=== PATIENT | male | born 1935 | race Caucasian/White ===

== ENCOUNTER 2020-06-06 12:36 | Inpatient (IN) | payer MEDICARE, SELFPAY ==
[2020-06-06] VITALS (8 sets, daily range): BP systolic 93–173; BP diastolic 51–79; PULSE 58–65; RESP 14–18; TEMP 36.1–36.6; O2SAT 88–100; BMI 23.3
--- NOTE | ~2020-06-06 | CT_ITS ---
EXAMINATION: CT FACIAL BONES WITHOUT CONTRAST CLINICAL INFORMATION: Unwitnessed fall with facial bruising COMPARISON: None TECHNIQUE: Contiguous axial imaging through the facial bones was performed without administration of IV contrast. This CT examination was performed using dose optimization techniques as appropriate, variously including the following: *Automated exposure control *Adjustment of mA and/or kV according to patient size (this includes techniques or standardized protocols for targeted exams where dose is matched to indication/reason for exam; i.e. extremities or head) *Use of iterative reconstruction technique DLP: 1392 mGy-cm (in total with CT of the head and CT of the cervical spine) FINDINGS: There is no acute maxillofacial fracture. The pterygoid plates are intact. The zygomatic arches are intact. The lamina papyracea are intact. The orbital rims are intact. The paranasal sinuses are well-aerated. No air-fluid levels are seen. There is no deviation of the nasal septum. The ostiomeatal complexes are clear. The lamina papyracea are intact. The ethmoid roofs are symmetric. The carotid canals are normally covered by bone. No maxillary periapical disease is seen. The mastoid air cells and visualized middle ear cavities are well-aerated. The orbits are normal. The TMJs are unremarkable. The imaged portions of the brain demonstrate no acute abnormality. CT/CT facial bones wo con IMPRESSION: No acute intracranial process or discrete facial bone fracture.
--- NOTE | ~2020-06-06 | XR_ITS ---
EXAMINATION: XR PELVIS AND HIP, RIGHT XR CHEST CLINICAL INFORMATION: Pain after a fall COMPARISON: None TECHNIQUE: AP radiograph of the chest. AP radiograph of the pelvis with AP and frog-lateral views of the right hip. FINDINGS: Calcified granuloma in the right upper lobe, possibly in the left midlung. No focal consolidation, pulmonary edema, or pleural effusion. No pneumothorax. The cardiomediastinal silhouette is normal. No acute fracture of the pelvis or right hip. Mild bilateral hip osteoarthritis. Osteopenia. Marked degenerative disc disease at L4-L5 and L5-S1. Dense stool overlies the pelvis. Prominent vascular calcifications. XR/XR hip RT w PEL1V IMPRESSION: No acute cardiopulmonary findings. No acute fracture or dislocation of the pelvis/right hip.
--- NOTE | ~2020-06-06 | XR_ITS ---
EXAMINATION: XR PELVIS AND HIP, RIGHT XR CHEST CLINICAL INFORMATION: Pain after a fall COMPARISON: None TECHNIQUE: AP radiograph of the chest. AP radiograph of the pelvis with AP and frog-lateral views of the right hip. FINDINGS: Calcified granuloma in the right upper lobe, possibly in the left midlung. No focal consolidation, pulmonary edema, or pleural effusion. No pneumothorax. The cardiomediastinal silhouette is normal. No acute fracture of the pelvis or right hip. Mild bilateral hip osteoarthritis. Osteopenia. Marked degenerative disc disease at L4-L5 and L5-S1. Dense stool overlies the pelvis. Prominent vascular calcifications. XR/XR chest 1V IMPRESSION: No acute cardiopulmonary findings. No acute fracture or dislocation of the pelvis/right hip.
--- NOTE | ~2020-06-06 | CT_ITS ---
EXAMINATION: CT HEAD WITHOUT CONTRAST CLINICAL INFORMATION: Status post witnessed fall COMPARISON: None TECHNIQUE: Contiguous axial imaging was performed from the skull base to vertex without intravenous administration of contrast. This CT examination was performed using dose optimization techniques as appropriate, variously including the following: *Automated exposure control *Adjustment of mA and/or kV according to patient size (this includes techniques or standardized protocols for targeted exams where dose is matched to indication/reason for exam; i.e. extremities or head) *Use of iterative reconstruction technique DLP: 1392 mGy-cm (in total with CT of the face and CT of the cervical spine) FINDINGS: There is no evidence of acute intracranial hemorrhage or territorial infarction. No abnormal mass effect or midline shift is seen. Tobar to white matter differentiation is well preserved. No extra-axial fluid collections are identified. There is prominence of the ventricles and sulci, compatible with age-related global atrophy. There are scattered areas of decreased attenuation in the subcortical and periventricular white matter, likely due to chronic microvascular ischemic changes. 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 The osseous structures and soft tissues are normal. The mastoid air cells and visualized portions of the paranasal sinuses are well aerated. CT/CT head/brain wo con IMPRESSION: No acute intracranial pathology. Chronic findings of microvascular ischemic changes in the subcortical and periventricular white matter, old lacunar infarct in the left zaida and right basal ganglia, and age related cortical atrophy.
--- NOTE | ~2020-06-06 | CT_ITS ---
EXAMINATION: CT CERVICAL SPINE WITHOUT CONTRAST CLINICAL INFORMATION: Unwitnessed fall COMPARISON: None TECHNIQUE: Helical imaging of the cervical spine was obtained in the axial plane, with generation of sagittal and coronal reformats. This CT examination was performed using dose optimization techniques as appropriate, variously including the following: *Automated exposure control *Adjustment of mA and/or kV according to patient size (this includes techniques or standardized protocols for targeted exams where dose is matched to indication/reason for exam; i.e. extremities or head) *Use of iterative reconstruction technique DLP: 1392 mGy-cm (total with CT of the head and CT of the face) FINDINGS: There is no acute fracture or dislocation. There is diffuse osteopenia. Vertebral body heights are maintained. There is grade 1-2 retrolisthesis of C2 on C3 and grade 1-2 anterolisthesis of C3 on C4. There is diffuse intervertebral disc space narrowing with endplate osteophyte formation. There is subchondral cystic formation at multiple levels. Posterior elements are intact. There is diffuse facet arthropathy, most prominent at C3-C4 and C4-C5. There are mild hypertrophic changes of the C1-C2 articulation. There is moderate to severe bilateral neural foraminal narrowing at C3-C4 and C4-C5. The paravertebral soft tissues are normal. There are centrilobular emphysematous changes in the visualized lung apices. There are are groundglass opacities in the upper lobes that are partially visualized. CT/CT cervical spine wo con IMPRESSION: Multilevel degenerative changes of the cervical spine without acute fracture or dislocation. Grade 1-2 anterolisthesis of C2 on C3 and grade 1 anterolisthesis of C3 on C4. Partially visualized groundglass opacities in the upper lobes, that may reflect infection or inflammation.
--- NOTE | 2020-06-06 13:12 | PC.NURSE ---
calling [facility]. pt should have gone to [facility]. baseline is non ambulatory, tried to get up unassisted. lately more lethargic. last fall was 3/. has been at [facility] since then. arrived with falls and broken ribs, end stage parkinsons. failure to thrive, [place] [facility] was disloged, not [facility]. may need hospice soon according to Dustin. liquid diet. thin.
--- NOTE | 2020-06-06 13:30 | PC.NURSE ---
son on phone. was in independent living at [facility] but then fell and has been at [facility] p/t [facility]. was using walker b/f fall. Fell on a sunday AM after nose bleed, saw ENT, had rhino rocket, has recieved both covid vaccines, 5:30am fell trying to get to BR, fx 6 ribs, on floor for 10-12 hrs. has been at [facility] recieving PT. son states he's been c/o right hip pain. aspirated eggs at [facility].
--- NOTE | 2020-06-06 14:10 | ECG_ITS ---
Test Reason : FALL Blood Pressure : / mmHG Vent. Rate : 055 BPM Atrial Rate : 056 BPM P-R Int : 166 ms QRS Dur : 114 ms QT Int : 444 ms P-R-T Axes : 074 -60 148 degrees QTc Int : 424 ms Sinus bradycardia Left anterior fascicular block Septal infarct (cited on or before 06-JUN-2020) Abnormal ECG No previous ECGs available Referred By: eMre Miles Electronically Signed By: TIM BRAND
--- NOTE | 2020-06-06 14:11 | ED.FALL ---
HPI - Fall General Chief Complaint: Fall <EMILY Ochoa - Last Filed: 06/06/20 17:02> Stated Complaint: UNWIT FALL,F/C PULLED OUT,L EYE BRUISE, +COLLAR <EMILY Ochoa - Last Filed: 06/06/20 17:02> Time Seen by Provider: 06/06/20 14:07 <EMILY Ochoa - Last Filed: 06/06/20 17:02> Source: patient, family, EMS, RN notes reviewed and old records reviewed <EMILY Ochoa - Last Filed: 06/06/20 17:02> Mode of arrival: EMS <EMILY Ochoa - Last Filed: 06/06/20 17:02> History of Present Illness HPI Narrative: 84 y/o male with history of Parkinson's disease with mild dementia, history of recurrent nose bleeds and history of recent admission at [facility] 05/19 - 05/27 for multiple rib fracutres, rhabdomyolysis and altered mental status who presents to the ED from acute rehab via EMS after he was found on the floor this morning. Fall occurred between 9 am and 11:30 am when he was found. He has been in a wheelchair since d/c from [facility], although his baseline was ambulating with a walker and living in an assisted living. He was found with his Cuellar catheter removed. He states he fell and he was dizzy prior to the fall but his cannot recall other details. He is not on anticoagulation and he denies LOC. He reports some right hip pain. He arrives in a C-collar from EMS. <EMILY Ochoa - Last Filed: 06/06/20 17:02> MD complaint: fall <EMILY Ochoa - Last Filed: 06/06/20 17:02> Onset (ago): hour(s) <EMILY Ochoa - Last Filed: 06/06/20 17:02> Fall from: standing <EMILY Ochoa - Last Filed: 06/06/20 17:02> Fall witnessed: no <EMILY Ochoa - Last Filed: 06/06/20 17:02> Place fall occurred[facility] <EMILY Ochoa - Last Filed: 06/06/20 17:02> Loss of consciousness: unsure <EMILY Ochoa - Last Filed: 06/06/20 17:02> Prolonged down time: yes (possibly 2.5 hours ) <EMILY Ochoa - Last Filed: 06/06/20 17:02> Symptoms prior to fall: dizziness <EMILY Ochoa - Last Filed: 06/06/20 17:02> Context: recent illness and history of frequent falls <EMILY Ochoa - Last Filed: 06/06/20 17:02> Location of injury: head and face <EMILY Ochoa - Last Filed: 06/06/20 17:02> Location of injury - extremities: right: lower leg (hip) <EMILY Ochoa - Last Filed: 06/06/20 17:02> Severity: moderate <EMILY Ochoa - Last Filed: 06/06/20 17:02> Quality: aching <EMILY Ochoa - Last Filed: 06/06/20 17:02> Associated symptoms (after fall): weakness and lightheaded <EMILY Ochoa - Last Filed: 06/06/20 17:02> Related Data Home Medications: Home Medications Medication Instructions Recorded Confirmed aspirin [Aspir-81] 81 mg PO DAILY 06/06/20 06/06/20 carbidopa-levodopa [Sinemet] 2 tab PO QID 06/06/20 06/06/20 cholecalciferol (vitamin D3) 2,000 mcg PO DAILY 06/06/20 06/06/20 [Vitamin D3] cyanocobalamin (vitamin B-12) 1,000 mcg PO DAILY 06/06/20 06/06/20 docusate sodium [Colace] 100 mg PO BID 06/06/20 06/06/20 food supplemt, lactose-reduced See Rx Instructions .ROUTE .COMPLEX 06/06/20 06/06/20 [Ensure] gabapentin 100 mg PO TID 06/06/20 06/06/20 ibuprofen 800 mg PO TID PRN 06/06/20 06/06/20 levothyroxine 112 mcg PO DAILY 06/06/20 06/06/20 melatonin 5 mg PO BEDTIME PRN 06/06/20 06/06/20 pravastatin [Pravachol] 20 mg PO DAILY 06/06/20 06/06/20 rivastigmine 9.5 mg TRANSDERMAL DAILY PRN 06/06/20 06/06/20 senna 10 ml PO BEDTIME PRN 06/06/20 06/06/20 <EMILY Ochoa - Last Filed: 06/06/20 17:02> Allergies/Adverse Reactions: Allergies Allergy/AdvReac Type Severity Reaction Status Date / Time No Known Allergies Allergy Verified 06/06/20 13:17 <EMILY Ochoa - Last Filed: 06/06/20 17:02> Review of Systems Review of Systems: Constitutional: No Fever, No Chills ENT/Mouth: No sore throat, No Rhinorrhea, + Swallowing Difficulty Eyes: No Eye Pain, No Swelling, No Redness Cardiovascular: No Chest Pain, No SOB, No Orthopnea, No Edema Respiratory: No Cough, No Sputum, No Wheezing, No dyspnea Gastrointestinal: No Nausea, No Vomiting, No Diarrhea, No abdominal Pain, No Hematochezia, No Melena Genitourinary: No Dysuria, No Urinary Frequency, No Hematuria Musculoskeletal: + joint pain, No Myalgias Skin: No Skin Lesions, No rash Neuro: + Weakness, No Numbness, + Dizziness, No Headache Psych: No Anxiety/Panic, No Depression Heme/Lymph: + Bruising, No Lymphadenopathy Endocrine: No Polyuria, No Polydipsia <EMILY Ochoa Last Filed: 06/06/20 17:02> [facility] Past Medical History Attestation statement: The following information was validated with the patient. <EMILY Ochoa - Last Filed: 06/06/20 17:02> Medical History: Medical History (Updated 06/06/20 @ 19:13 by Vy Corbett NP) Dysphagia Epistaxis Falls Cuellar catheter problem High cholesterol Hypothyroid Parkinsons <EMILY Ochoa Last Filed: 06/06/20 17:02> Social History Social History: Social History Alcohol intake: never Smoking Status: Never smoker Use of substances other than those prescribed or required for medical reasons: No Advance Directives: No Advance Directives Information Provided: No <EMILY Ochoa Last Filed: 06/06/20 17:02> Physical Exam Vital Signs: Vital Signs: Last Vital Signs Temp 97.8 F 06/06/20 17:15 Pulse 65 06/06/20 20:30 Resp 18 06/06/20 19:44 BP 106/54 L 06/06/20 20:30 Pulse Ox 92 06/06/20 19:44 Body Mass Index 23.3 Appearance: Elderly, frail male laying in bed with cervical collar in place. no distress Eyes: Pupils equal, round and reactive to light. minor ecchymosis over left supraorbital area without deformity or crepitus on palpation. EOMI, no nystagmus ENT: normal inspection externally, dry mucus membranes in the nares, poor dentition with severe dental decay of upper right molar, bright red blood noted in posterior oropharynx and hard palpate, tongue is dry without trauma or active bleeding. Neck: c-collar in place. CVS: bradycardic, regular rhythm. Pulses normal. Respiratory: No respiratory distress. Breath sounds normal. Left anterior chest wall tenderness Abdomen: Soft and nontender. +BS x4 Skin: Skin warm and dry. Normal skin color. Normal skin turgor. No rashes. Extremities: No lower extremity edema. Pelvis is stable. mild right hip tenderness. Neuro: Oriented X 2, able to recall [facility] after told once. 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 <EMILY Ochoa - Last Filed: 06/06/20 17:02> Vital Signs: Last Vital Signs Temp 97.8 F 06/06/20 17:15 Pulse 65 06/06/20 20:30 Resp 18 06/06/20 19:44 BP 106/54 L 06/06/20 20:30 Pulse Ox 92 06/06/20 19:44 Body Mass Index 23.3 <Vy Corbett NP - Last Filed: 06/06/20 22:30> Course Course Course Narrative: 84 y/o male with history of Parkinson's disease, recent fall resulting in multiple rib fractures. D/c to SNF on 05/27 with continued decline. He has been maintained on a pure liquid diet after failing a MBS at [facility]. He is weak and deconditioned. Son at the bedside confirms he would not want a PEG and he is a DNR/DNI. Will plan to get CT head/C-spine/facial bones as well we XR right hip. He is able to lift it off the bed. Labs and EKG ordered as well. <EMILY Ochoa - Last Filed: 06/06/20 17:02> 7:13 p.m. discussion with hospitalist regarding plan of care, plan is to admit for suspected aspiration pneumonia, hypoxia. <Vy Corbett NP - Last Filed: 06/06/20 22:30> Reevaluation(s) Reevaluation #1: Labs showing WBC 16K with normal lactic acid. He is afebrile and hemodynamically stable. Patient started developing a very congested cough with bloody secretions requiring suctioning. Unclear source of bleeding. Hx epistaxis. Will give empiric Afrin and Zosyn for possible aspiration. <EMILY Ochoa - Last Filed: 06/06/20 17:02> Reevaluation #2: Patient desaturated to 88% with coughing and requiring 2L NC and frequent suctioning. CXR pending. <EMILY Ochoa - Last Filed: 06/06/20 17:02> Consultations Consultation #1: Wanda <Vy Corbett NP - Last Filed: 06/06/20 22:30> Time: 19:07 <Vy Corbett NP - Last Filed: 06/06/20 22:30> MDM - Fall Differential Diagnosis Differential diagnosis: Likely syncope, dislocation, fracture, concussion with loss of consciousness and concussion without loss of consciousness <Vy Corbett NP - Last Filed: 06/06/20 22:30> Medical Records Attestation: I reviewed the patient's medical records. <Vy Corbett NP - Last Filed: 06/06/20 22:30> Lab Data Attestation: I reviewed the patient's lab results. <Vy Corbett NP - Last Filed: 06/06/20 22:30> Result diagrams: : 06/06/20 14:50 06/06/20 14:50 <EMILY Ochoa - Last Filed: 06/06/20 17:02> Labs: Lab Results 06/06/20 06/06/20 06/06/20 Range/Units 14:50 14:50 14:50 WBC 16.3 H (4.8-10.8) X10*3/uL RBC 3.72 L (4.60-5.80) X10*6/uL Hgb 12.4 L (14.0-18.0) g/dl Hct 37.2 L (42-52) % MCV 100.0 H (80-98) fL MCH 33.3 H (27.0-33.0) pg MCHC 33.3 (31.0-36.0) g/dl RDW 13.0 (11.0-16.0) % Plt Count 404 H (160-400) X10*3/uL MPV 9.9 (9.4-12.4) fL Immature Gran % (Auto) 0.4 (0.0-0.4) % Neut % (Auto) 91.5 H (45-73) % Lymph % (Auto) 5.0 L (20-40) % Mcnairy % (Auto) 2.8 (2-11) % Eos % (Auto) 0.1 (0-4) % Baso % (Auto) 0.2 (0-2) % Lymph # (Auto) 0.8 L (1.2-4.9) X10*3/uL Mcnairy # (Auto) 0.5 (0.1-1.2) X10*3/uL Eos # (Auto) 0.0 (0.0-0.4) X10*3/uL Baso # (Auto) 0.0 (0.0-0.2) X10*3/uL Abs Immat Gran (auto) 0.07 H (0.00-0.03) X10*3/uL Absolute Neuts (auto) 14.9 H (2.0-8.3) X10*3/uL Absolute Nucleated RBC 0.000 (0.0-0.012) X10*3/uL Nucleated RBC % (auto) 0.0 (0.0-0.2) /100WBC PT 12.7 (10.8-13.0) SEC INR 1.1 (0.9-1.1) APTT 39.0 H (24.1-38.0) SEC Sodium 137 (135-145) mmol/L Potassium 4.3 (3.3-5.1) mmol/L Chloride 102 (96-108) mmol/L Carbon Dioxide 25 (22-29) mmol/L Anion Gap 14 (12-20) BUN 24 H (9-16) mg/dL Creatinine 1.12 (0.5-1.4) mg/dL Estim Creat Clear Calc 44.3 Estimated GFR > 60 Random Glucose 95 (60-115) mg/dL Lactic Acid (0.5-2.0) mmol/L Calcium 9.1 (8.4-10.2) mg/dL Magnesium 2.1 (1.6-2.6) mg/dL Total Bilirubin 0.8 (0.0-1.0) mg/dL Direct Bilirubin 0.3 (0.0-0.5) mg/dL AST 13 (5-37) U/L ALT < 6 (0-40) U/L Alkaline Phosphatase 95 (39-117) U/L Total Creatine Kinase (38-174) U/L Troponin I High Sens (<3.5-35.0) ng/L B-Natriuretic Peptide (<100) pg/mL Total Protein 6.3 L (6.5-8.0) g/dL Albumin 3.9 (3.5-5.0) g/dL Procalcitonin ng/mL COVID-19 ([facility]) (Negative) COVID-19 Clin Com 06/06/20 06/06/20 06/06/20 Range/Units 14:50 14:50 14:50 WBC (4.8-10.8) X10*3/uL RBC (4.60-5.80) X10*6/uL Hgb (14.0-18.0) g/dl Hct (42-52) % MCV (80-98) fL MCH (27.0-33.0) pg MCHC (31.0-36.0) g/dl RDW (11.0-16.0) % Plt Count (160-400) X10*3/uL MPV (9.4-12.4) fL Immature Gran % (Auto) (0.0-0.4) % Neut % (Auto) (45-73) % Lymph % (Auto) (20-40) % Mcnairy % (Auto) (2-11) % Eos % (Auto) (0-4) % Baso % (Auto) (0-2) % Lymph # (Auto) (1.2-4.9) X10*3/uL Mcnairy # (Auto) (0.1-1.2) X10*3/uL Eos # (Auto) (0.0-0.4) X10*3/uL Baso # (Auto) (0.0-0.2) X10*3/uL Abs Immat Gran (auto) (0.00-0.03) X10*3/uL Absolute Neuts (auto) (2.0-8.3) X10*3/uL Absolute Nucleated RBC (0.0-0.012) X10*3/uL Nucleated RBC % (auto) (0.0-0.2) /100WBC PT (10.8-13.0) SEC INR (0.9-1.1) APTT (24.1-38.0) SEC Sodium (135-145) mmol/L Potassium (3.3-5.1) mmol/L Chloride (96-108) mmol/L Carbon Dioxide (22-29) mmol/L Anion Gap (12-20) BUN (9-16) mg/dL Creatinine (0.5-1.4) mg/dL Estim Creat Clear Calc Estimated GFR Random Glucose (60-115) mg/dL Lactic Acid (0.5-2.0) mmol/L Calcium (8.4-10.2) mg/dL Magnesium (1.6-2.6) mg/dL Total Bilirubin (0.0-1.0) mg/dL Direct Bilirubin (0.0-0.5) mg/dL AST (5-37) U/L ALT (0-40) U/L Alkaline Phosphatase (39-117) U/L Total Creatine Kinase 82 (38-174) U/L Troponin I High Sens 40.5 H (<3.5-35.0) ng/L B-Natriuretic Peptide 87 (<100) pg/mL Total Protein (6.5-8.0) g/dL Albumin (3.5-5.0) g/dL Procalcitonin ng/mL COVID-19 ([facility]) Negative (Negative) COVID-19 Clin Com See Note 06/06/20 06/06/20 06/06/20 Range/Units 14:50 14:51 18:20 WBC (4.8-10.8) X10*3/uL RBC (4.60-5.80) X10*6/uL Hgb (14.0-18.0) g/dl Hct (42-52) % MCV (80-98) fL MCH (27.0-33.0) pg MCHC (31.0-36.0) g/dl RDW (11.0-16.0) % Plt Count (160-400) X10*3/uL MPV (9.4-12.4) fL Immature Gran % (Auto) (0.0-0.4) % Neut % (Auto) (45-73) % Lymph % (Auto) (20-40) % Mcnairy % (Auto) (2-11) % Eos % (Auto) (0-4) % Baso % (Auto) (0-2) % Lymph # (Auto) (1.2-4.9) X10*3/uL Mcnairy # (Auto) (0.1-1.2) X10*3/uL Eos # (Auto) (0.0-0.4) X10*3/uL Baso # (Auto) (0.0-0.2) X10*3/uL Abs Immat Gran (auto) (0.00-0.03) X10*3/uL Absolute Neuts (auto) (2.0-8.3) X10*3/uL Absolute Nucleated RBC (0.0-0.012) X10*3/uL Nucleated RBC % (auto) (0.0-0.2) /100WBC PT (10.8-13.0) SEC INR (0.9-1.1) APTT (24.1-38.0) SEC Sodium (135-145) mmol/L Potassium (3.3-5.1) mmol/L Chloride (96-108) mmol/L Carbon Dioxide (22-29) mmol/L Anion Gap (12-20) BUN (9-16) mg/dL Creatinine (0.5-1.4) mg/dL Estim Creat Clear Calc Estimated GFR Random Glucose (60-115) mg/dL Lactic Acid 1.6 (0.5-2.0) mmol/L Calcium (8.4-10.2) mg/dL Magnesium (1.6-2.6) mg/dL Total Bilirubin (0.0-1.0) mg/dL Direct Bilirubin (0.0-0.5) mg/dL AST (5-37) U/L ALT (0-40) U/L Alkaline Phosphatase (39-117) U/L Total Creatine Kinase (38-174) U/L Troponin I High Sens 36.8 H (<3.5-35.0) ng/L B-Natriuretic Peptide (<100) pg/mL Total Protein (6.5-8.0) g/dL Albumin (3.5-5.0) g/dL Procalcitonin 0.39 ng/mL COVID-19 ([facility]) (Negative) COVID-19 Clin Com <EMILY Ochoa - Last Filed: 06/06/20 17:02> Lab Results 06/06/20 06/06/20 06/06/20 Range/Units 14:50 14:50 14:50 WBC 16.3 H (4.8-10.8) X10*3/uL RBC 3.72 L (4.60-5.80) X10*6/uL Hgb 12.4 L (14.0-18.0) g/dl Hct 37.2 L (42-52) % MCV 100.0 H (80-98) fL MCH 33.3 H (27.0-33.0) pg MCHC 33.3 (31.0-36.0) g/dl RDW 13.0 (11.0-16.0) % Plt Count 404 H (160-400) X10*3/uL MPV 9.9 (9.4-12.4) fL Immature Gran % (Auto) 0.4 (0.0-0.4) % Neut % (Auto) 91.5 H (45-73) % Lymph % (Auto) 5.0 L (20-40) % Mcnairy % (Auto) 2.8 (2-11) % Eos % (Auto) 0.1 (0-4) % Baso % (Auto) 0.2 (0-2) % Lymph # (Auto) 0.8 L (1.2-4.9) X10*3/uL Mcnairy # (Auto) 0.5 (0.1-1.2) X10*3/uL Eos # (Auto) 0.0 (0.0-0.4) X10*3/uL Baso # (Auto) 0.0 (0.0-0.2) X10*3/uL Abs Immat Gran (auto) 0.07 H (0.00-0.03) X10*3/uL Absolute Neuts (auto) 14.9 H (2.0-8.3) X10*3/uL Absolute Nucleated RBC 0.000 (0.0-0.012) X10*3/uL Nucleated RBC % (auto) 0.0 (0.0-0.2) /100WBC PT 12.7 (10.8-13.0) SEC INR 1.1 (0.9-1.1) APTT 39.0 H (24.1-38.0) SEC Sodium 137 (135-145) mmol/L Potassium 4.3 (3.3-5.1) mmol/L Chloride 102 (96-108) mmol/L Carbon Dioxide 25 (22-29) mmol/L Anion Gap 14 (12-20) BUN 24 H (9-16) mg/dL Creatinine 1.12 (0.5-1.4) mg/dL Estim Creat Clear Calc 44.3 Estimated GFR > 60 Random Glucose 95 (60-115) mg/dL Lactic Acid (0.5-2.0) mmol/L Calcium 9.1 (8.4-10.2) mg/dL Magnesium 2.1 (1.6-2.6) mg/dL Total Bilirubin 0.8 (0.0-1.0) mg/dL Direct Bilirubin 0.3 (0.0-0.5) mg/dL AST 13 (5-37) U/L ALT < 6 (0-40) U/L Alkaline Phosphatase 95 (39-117) U/L Total Creatine Kinase (38-174) U/L Troponin I High Sens (<3.5-35.0) ng/L B-Natriuretic Peptide (<100) pg/mL Total Protein 6.3 L (6.5-8.0) g/dL Albumin 3.9 (3.5-5.0) g/dL Procalcitonin ng/mL COVID-19 ([facility]) (Negative) COVID-19 Clin Com 06/06/20 06/06/20 06/06/20 Range/Units 14:50 14:50 14:50 WBC (4.8-10.8) X10*3/uL RBC (4.60-5.80) X10*6/uL Hgb (14.0-18.0) g/dl Hct (42-52) % MCV (80-98) fL MCH (27.0-33.0) pg MCHC (31.0-36.0) g/dl RDW (11.0-16.0) % Plt Count (160-400) X10*3/uL MPV (9.4-12.4) fL Immature Gran % (Auto) (0.0-0.4) % Neut % (Auto) (45-73) % Lymph % (Auto) (20-40) % Mcnairy % (Auto) (2-11) % Eos % (Auto) (0-4) % Baso % (Auto) (0-2) % Lymph # (Auto) (1.2-4.9) X10*3/uL Mcnairy # (Auto) (0.1-1.2) X10*3/uL Eos # (Auto) (0.0-0.4) X10*3/uL Baso # (Auto) (0.0-0.2) X10*3/uL Abs Immat Gran (auto) (0.00-0.03) X10*3/uL Absolute Neuts (auto) (2.0-8.3) X10*3/uL Absolute Nucleated RBC (0.0-0.012) X10*3/uL Nucleated RBC % (auto) (0.0-0.2) /100WBC PT (10.8-13.0) SEC INR (0.9-1.1) APTT (24.1-38.0) SEC Sodium (135-145) mmol/L Potassium (3.3-5.1) mmol/L Chloride (96-108) mmol/L Carbon Dioxide (22-29) mmol/L Anion Gap (12-20) BUN (9-16) mg/dL Creatinine (0.5-1.4) mg/dL Estim Creat Clear Calc Estimated GFR Random Glucose (60-115) mg/dL Lactic Acid (0.5-2.0) mmol/L Calcium (8.4-10.2) mg/dL Magnesium (1.6-2.6) mg/dL Total Bilirubin (0.0-1.0) mg/dL Direct Bilirubin (0.0-0.5) mg/dL AST (5-37) U/L ALT (0-40) U/L Alkaline Phosphatase (39-117) U/L Total Creatine Kinase 82 (38-174) U/L Troponin I High Sens 40.5 H (<3.5-35.0) ng/L B-Natriuretic Peptide 87 (<100) pg/mL Total Protein (6.5-8.0) g/dL Albumin (3.5-5.0) g/dL Procalcitonin ng/mL COVID-19 ([facility]) Negative (Negative) COVID-19 Clin Com See Note 06/06/20 06/06/20 06/06/20 Range/Units 14:50 14:51 18:20 WBC (4.8-10.8) X10*3/uL RBC (4.60-5.80) X10*6/uL Hgb (14.0-18.0) g/dl Hct (42-52) % MCV (80-98) fL MCH (27.0-33.0) pg MCHC (31.0-36.0) g/dl RDW (11.0-16.0) % Plt Count (160-400) X10*3/uL MPV (9.4-12.4) fL Immature Gran % (Auto) (0.0-0.4) % Neut % (Auto) (45-73) % Lymph % (Auto) (20-40) % Mcnairy % (Auto) (2-11) % Eos % (Auto) (0-4) % Baso % (Auto) (0-2) % Lymph # (Auto) (1.2-4.9) X10*3/uL Mcnairy # (Auto) (0.1-1.2) X10*3/uL Eos # (Auto) (0.0-0.4) X10*3/uL Baso # (Auto) (0.0-0.2) X10*3/uL Abs Immat Gran (auto) (0.00-0.03) X10*3/uL Absolute Neuts (auto) (2.0-8.3) X10*3/uL Absolute Nucleated RBC (0.0-0.012) X10*3/uL Nucleated RBC % (auto) (0.0-0.2) /100WBC PT (10.8-13.0) SEC INR (0.9-1.1) APTT (24.1-38.0) SEC Sodium (135-145) mmol/L Potassium (3.3-5.1) mmol/L Chloride (96-108) mmol/L Carbon Dioxide (22-29) mmol/L Anion Gap (12-20) BUN (9-16) mg/dL Creatinine (0.5-1.4) mg/dL Estim Creat Clear Calc Estimated GFR Random Glucose (60-115) mg/dL Lactic Acid 1.6 (0.5-2.0) mmol/L Calcium (8.4-10.2) mg/dL Magnesium (1.6-2.6) mg/dL Total Bilirubin (0.0-1.0) mg/dL Direct Bilirubin (0.0-0.5) mg/dL AST (5-37) U/L ALT (0-40) U/L Alkaline Phosphatase (39-117) U/L Total Creatine Kinase (38-174) U/L Troponin I High Sens 36.8 H (<3.5-35.0) ng/L B-Natriuretic Peptide (<100) pg/mL Total Protein (6.5-8.0) g/dL Albumin (3.5-5.0) g/dL Procalcitonin 0.39 ng/mL COVID-19 ([facility]) (Negative) COVID-19 Clin Com <Vy Corbett NP - Last Filed: 06/06/20 22:30> Imaging Data Chest and hip x-ray: Attestation: I personally reviewed and interpreted this imaging study as follows: <Vy Corbett NP - Last Filed: 06/06/20 22:30> Radiologist's impression: EXAMINATION: XR PELVIS AND HIP, RIGHT XR CHEST CLINICAL INFORMATION: Pain after a fall COMPARISON: None TECHNIQUE: AP radiograph of the chest. AP radiograph of the pelvis with AP and frog-lateral views of the right hip. FINDINGS: Calcified granuloma in the right upper lobe, possibly in the left midlung. No focal consolidation, pulmonary edema, or pleural effusion. No pneumothorax. The cardiomediastinal silhouette is normal. No acute fracture of the pelvis or right hip. Mild bilateral hip osteoarthritis. Osteopenia. Marked degenerative disc disease at L4-L5 and L5-S1. Dense stool overlies the pelvis. Prominent vascular calcifications. XR/XR chest 1V IMPRESSION: No acute cardiopulmonary findings. No acute fracture or dislocation of the pelvis/right hip. <Vy Corbett NP - Last Filed: 06/06/20 22:30> Head, face, cervical spine CT: Attestation: I personally reviewed and interpreted this imaging study as follows: <Vy Corbett NP - Last Filed: 06/06/20 22:30> Radiologist's impression: EXAMINATION: CT HEAD WITHOUT CONTRAST CLINICAL INFORMATION: Status post witnessed fall COMPARISON: None TECHNIQUE: Contiguous axial imaging was performed from the skull base to vertex without intravenous administration of contrast. This CT examination was performed using dose optimization techniques as appropriate, variously including the following: *Automated exposure control *Adjustment of mA and/or kV according to patient size (this includes techniques or standardized protocols for targeted exams where dose is matched to indication/reason for exam; i.e. extremities or head) *Use of iterative reconstruction technique DLP: 1392 mGy-cm (in total with CT of the face and CT of the cervical spine) FINDINGS: There is no evidence of acute intracranial hemorrhage or territorial infarction. No abnormal mass effect or midline shift is seen. Tobar to white matter differentiation is well preserved. No extra-axial fluid collections are identified. There is prominence of the ventricles and sulci, compatible with age-related global atrophy. There are scattered areas of decreased attenuation in the subcortical and periventricular white matter, likely due to chronic microvascular ischemic changes. 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 The osseous structures and soft tissues are normal. The mastoid air cells and visualized portions of the paranasal sinuses are well aerated. CT/CT head/brain wo con IMPRESSION: No acute intracranial pathology. Chronic findings of microvascular ischemic changes in the subcortical and periventricular white matter, old lacunar infarct in the left zaida and right basal ganglia, and age related cortical atrophy. FINDINGS: There is no acute maxillofacial fracture. The pterygoid plates are intact. The zygomatic arches are intact. The lamina papyracea are intact. The orbital rims are intact. The paranasal sinuses are well-aerated. No air-fluid levels are seen. There is no deviation of the nasal septum. The ostiomeatal complexes are clear. The lamina papyracea are intact. The ethmoid roofs are symmetric. The carotid canals are normally covered by bone. No maxillary periapical disease is seen. The mastoid air cells and visualized middle ear cavities are well-aerated. The orbits are normal. The TMJs are unremarkable. The imaged portions of the brain demonstrate no acute abnormality. CT/CT facial bones wo con IMPRESSION: No acute intracranial process or discrete facial bone fracture. EXAMINATION: CT CERVICAL SPINE WITHOUT CONTRAST CLINICAL INFORMATION: Unwitnessed fall COMPARISON: None TECHNIQUE: Helical imaging of the cervical spine was obtained in the axial plane, with generation of sagittal and coronal reformats. This CT examination was performed using dose optimization techniques as appropriate, variously including the following: *Automated exposure control *Adjustment of mA and/or kV according to patient size (this includes techniques or standardized protocols for targeted exams where dose is matched to indication/reason for exam; i.e. extremities or head) *Use of iterative reconstruction technique DLP: 1392 mGy-cm (total with CT of the head and CT of the face) FINDINGS: There is no acute fracture or dislocation. There is diffuse osteopenia. Vertebral body heights are maintained. There is grade 1-2 retrolisthesis of C2 on C3 and grade 1-2 anterolisthesis of C3 on C4. There is diffuse intervertebral disc space narrowing with endplate osteophyte formation. There is subchondral cystic formation at multiple levels. Posterior elements are intact. There is diffuse facet arthropathy, most prominent at C3-C4 and C4-C5. There are mild hypertrophic changes of the C1-C2 articulation. There is moderate to severe bilateral neural foraminal narrowing at C3-C4 and C4-C5. The paravertebral soft tissues are normal. There are centrilobular emphysematous changes in the visualized lung apices. There are are groundglass opacities in the upper lobes that are partially visualized. CT/CT cervical spine wo con IMPRESSION: Multilevel degenerative changes of the cervical spine without acute fracture or dislocation. Grade 1-2 anterolisthesis of C2 on C3 and grade 1 anterolisthesis of C3 on C4. Partially visualized groundglass opacities in the upper lobes, that may reflect infection or inflammation. <Vy Corbett NP - Last Filed: 06/06/20 22:30> ECG Data Attestation: I personally reviewed and interpreted this ECG as follows: <REYMUNDO Mejia Last Filed: 06/06/20 22:30> ECG interpretation date: 06/06/20 <Vy Corbett NP - Last Filed: 06/06/20 22:30> ECG interpretation time: 13:36 <Vy Corbett NP - Last Filed: 06/06/20 22:30> Interpretation: Vent. rate 55 BPM WA interval 166 ms QRS duration 114 ms QT/QTc 444/424 ms P-R-T axes 74 -60 148 Sinus bradycardia Left anterior fascicular block Septal infarct (cited on or before 06-JUN-2020) Abnormal ECG When compared with ECG of 06-JUN-2020 13:36, Premature atrial complexes are no longer Present Nonspecific T wave abnormality no longer evident in Inferior leads <Vy Corbett NP - Last Filed: 06/06/20 22:30> Critical Care Time Critical Care Time Critical Care Time: Yes <Vy Corbett NP - Last Filed: 06/06/20 22:30> Total Critical Care Time: 45 <Vy Corbett NP - Last Filed: 06/06/20 22:30> Attestation: I have personally provided critical care time exclusive of time spent on separately billable procedures. Time includes review of laboratory data, radiology results, discussion with consultants, and monitoring for potential decompensation. Interventions were performed as documented. <REYMUNDO Mejia Last Filed: 06/06/20 22:30> Discharge Plan Discharge Clinical Impression: Hypoxia Aspiration pneumonia Qualifiers: Aspiration pneumonia type: unspecified Laterality: unspecified laterality Lung location: unspecified part of lung Qualified Code(s): J69.0 - Pneumonitis due to inhalation of food and vomit Fall Qualifiers: Encounter type: initial encounter Qualified Code(s): W19.XXXA - Unspecified fall, initial encounter <EMILY Ochoa - Last Filed: 06/06/20 17:02> Patient Disposition: Admitted As Inpatient <EMILY Ochoa - Last Filed: 06/06/20 17:02>
--- NOTE | 2020-06-06 14:56 | PC.NURSE ---
son at bedside. pt is sleepy (falls asleep mid labwork) but son states is at baseline mentation. answering questions. very [place] [place].
[2020-06-06 15:02] LABS: Basophils Percent Auto 0.2 % (0-2); Eosinophils Percent Auto 0.1 % (0-4); Hematocrit 37.2 % (42-52); Hemoglobin 12.4 g/dl (14.0-18.0); Imm Gran Abs Auto 0.07 X10*3/uL (0.00-0.03); Imm Gran Pct Auto 0.4 % (0.0-0.4); Lymphocytes Absolute Auto 0.8 X10*3/uL (1.2-4.9); MANUAL DIFF FLAG NO; Mean Corpuscular HGB Conc 33.3 g/dl (31.0-36.0); Mean Corpuscular Hemoglobin 33.3 pg (27.0-33.0); Mean Platelet Volume 9.9 fL (9.4-12.4); Monocytes Absolute Auto 0.5 X10*3/uL (0.1-1.2); Monocytes Percent Auto 2.8 % (2-11); Neutrophils Absolute Auto 14.9 X10*3/uL (2.0-8.3); Neutrophils Percent Auto 91.5 % (45-73); Platelet Count 404 X10*3/uL (160-400); Red Blood Count 3.72 X10*6/uL (4.60-5.80); SCAN SMEAR FLAG 1; White Blood Count 16.3 X10*3/uL (4.8-10.8)
[2020-06-06 15:07] LABS: INTERNATIONAL NORM RATIO 1.1 (0.9-1.1); Prothrombin Time 12.7 SEC (10.8-13.0)
--- NOTE | 2020-06-06 15:21 | PC.NURSE ---
parox 10 minutes ago pt began trying to clear throat. suctioned withyankour and adrianna red blood with clots out to a total of about 50ml. sml amount of blood noted on abot swab but to bleeding in posterior throat at that time. now blood noted posteriorly. pt is alert and sitting at almost 90 degrees. suction continues at bedside. PA was also at bedside. saO2 drops to 88% during coughing fits.
[2020-06-06 15:27] LABS: COVID-19 Test Negative (Negative); IDNOW Serial# 9DD0AD1C
[2020-06-06 15:33] LABS: Lactic Acid 1.6 mmol/L (0.5-2.0)
[2020-06-06 15:45] LABS: Alanine Aminotransferase < 6 U/L (0-40); Albumin Level 3.9 g/dL (3.5-5.0); Alkaline Phosphatase 95 U/L (39-117); Anion Gap 14 (12-20); Aspartate Amino Transferase 13 U/L (5-37); Bilirubin Direct 0.3 mg/dL (0.0-0.5); Bilirubin Total 0.8 mg/dL (0.0-1.0); Blood Urea Nitrogen 24 mg/dL (9-16); Calcium 9.1 mg/dL (8.4-10.2); Carbon Dioxide 25 mmol/L (22-29); Chloride 102 mmol/L (96-108); Creatinine Clr Calc Pharmacy 44.3; Estimated Glomerular Filt Rate > 60; Glucose Random 95 mg/dL (60-115); Magnesium 2.1 mg/dL (1.6-2.6); Potassium 4.3 mmol/L (3.3-5.1); Sodium 137 mmol/L (135-145); Total Protein 6.3 g/dL (6.5-8.0)
[2020-06-06 15:56] LABS: B Type Natriuretic Peptide 87 pg/mL (<100); Troponin-I High Sensitivity 40.5 ng/L (<3.5-35.0)
--- NOTE | 2020-06-06 15:57 | PC.NURSE ---
coughing fits with hemoptysis has lessened. pt awaits cxr. son remains at bedside.
[2020-06-06] MEDS: 0.9 % Sodium Chloride 1,000 ML 999 ML IVCONT (15:58)
[2020-06-06] MEDS: Oxymetazoline HCl 0.05 % Nasal 15 ML SPRAY 2 SPRAY NOSTRIL-B (15:59)
[2020-06-06] MEDS: Piperacillin Sodium/Tazobactam 4.5 GM in 0.9 % Sodium Chloride 100 ML IV (16:45)
[2020-06-06 16:51] LABS: Procalcitonin 0.39 ng/mL
--- NOTE | 2020-06-06 17:16 | PC.NURSE ---
rolled in bed, no inconitinence. condom cath in place but not attached to bag. tolerated supine position well and bleeding is slowing in general. son remains at bedside. pt has been alert, coherent and calm.
[2020-06-06 18:58] LABS: Troponin-I High Sensitivity 36.8 ng/L (<3.5-35.0)
--- NOTE | 2020-06-06 19:08 | PC.NURSE ---
pt accidentally removed right a/c iv. while in room this rn noted that patient has 2 patches on left anterior chest. both were rivastigmine. one dated 06/04 removed. one dated 06/06 remains.
[2020-06-06] MEDS: Carbidopa/Levodopa CR 25/100 TABLET.ER 2 TAB PO (19:42)
--- NOTE | 2020-06-06 19:46 | PC.NURSE ---
swallowed crushed meds with pudding w/o difficult.
--- NOTE | 2020-06-06 20:00 | PC.NURSE ---
Pt medicated per MD orders. Liquid diet only. Occasionally being suctioned with yankaur as needed. Pt's son (David) at bedside, instructed to call him back at [phone] with updates and once patient is transferred. Will continue to monitor.
--- NOTE | 2020-06-06 20:57 | PM.IMHP ---
History of Present Illness Date of Service: 06/06/20 Chief Complaint: fall He 4-year-old male PMH of Parkinson's disease with Parkinson's associated dementia who presents to the hospital accompanied by his son after experiencing a fall at the rehab facility. Patient is alert oriented, does not remember the events surrounding the fall but denies having any chest pain, palpitations, shortness of breath, no dizziness, no change in vision. Per report from the nursing facility patient was last seen around 9:00 a.m., they checked on him around 11:30 a.m. and found him on the floor between his bed in his wheelchair with the thought that he may have been trying to get from his bed to his wheelchair. It appears that for the past 3 weeks patient has been having more falls. According to the son about 3 weeks ago patient started having nosebleed, went to [facility], test were okay and he was sent home. Two days after that he experienced a fall at his assisted living facility and sustained 6 rib fractures. Patient was at [facility] for 9 days as a result. At that time he was also found to have dysphagia and aspiration and his diet was modified to liquid diet only. He was discharged about 8-9 days ago from [facility] and has been in a rehab facility since. He had a fall about a week ago at the nursing facility, but no injuries were sustained and patient was not brought into the hospital. This is his 2nd fall within the last 8-9 days. It appears that these falls occurred mostly with him getting out of bed. Patient himself sustained head injury on following today. He at this time denies any headache, change in vision, no chest pain shortness of breath, no nausea or vomiting, no abdominal pain, no diarrhea or constipation, no urinary symptoms and no lower extremity edema. Orthostatic vitals done in the ED with supine and sitting were negative, patient had difficulty standing. On arrival to the ED patient hemodynamically stable but found to have 88% O2 on room air. Patient is currently on 2 L of nasal cannula satting in the high 90s. Labs are significant for WBC count 16.3, hemoglobin of 12.4, sodium of 137, potassium 4.3, BUN of 24, creatinine of 1.12, initial high sensitivity troponin of 40.5, 36.8 on repeat, BNP of 87, procalcitonin of 0.39, urine that is negative for any acute infection, chest x-ray is negative but a cervical spine CT showed ground-glass opacities in the lungs bilaterally. COVID-19 negative. All other imaging negative. Patient is being admitted for aspiration pneumonia, and further evaluation of his frequent falls Review of Systems Review of Systems: Yes all other systems are reviewed and are negative [facility] Medical History Dysphagia Epistaxis Falls Cuellar catheter problem High cholesterol Hypothyroid Parkinsons Pertinent family history: Significant for leukemia and COPD in father Social History Alcohol intake: never Smoking Status: Never smoker Use of substances other than those prescribed or required for medical reasons: No Advance Directives: No Advance Directives Information Provided: No Meds Allergies Allergy/AdvReac Type Severity Reaction Status Date / Time No Known Allergies Allergy Verified 06/06/20 13:17 Home Medications Medication Instructions Recorded Confirmed Last Taken Type aspirin [Aspir-81] 81 mg PO DAILY 06/06/20 06/06/20 06/06/20 History carbidopa-levodopa [Sinemet] 2 tab PO QID 06/06/20 06/06/20 Unknown History cholecalciferol (vitamin D3) 2,000 mcg PO DAILY 06/06/20 06/06/20 06/06/20 History [Vitamin D3] cyanocobalamin (vitamin B-12) 1,000 mcg PO DAILY 06/06/20 06/06/20 Unknown History docusate sodium [Colace] 100 mg PO BID 06/06/20 06/06/20 06/06/20 History food supplemt, lactose-reduced See Rx Instructions .ROUTE .COMPLEX 06/06/20 06/06/20 06/06/20 History [Ensure] gabapentin 100 mg PO TID 06/06/20 06/06/20 06/06/20 08:00 History ibuprofen 800 mg PO TID PRN 06/06/20 06/06/20 Unknown History levothyroxine 112 mcg PO DAILY 06/06/20 06/06/20 Unknown History melatonin 5 mg PO BEDTIME PRN 06/06/20 06/06/20 Unknown History pravastatin [Pravachol] 20 mg PO DAILY 06/06/20 06/06/20 Unknown History rivastigmine 9.5 mg TRANSDERMAL DAILY PRN 06/06/20 06/06/20 Unknown History senna 10 ml PO BEDTIME PRN 06/06/20 06/06/20 Unknown History Physical Exam Vital Signs and Narrative: Vital Signs: Last Vital Signs Temp 97.8 F 06/06/20 17:15 Pulse 65 06/06/20 20:30 Resp 18 06/06/20 19:44 BP 106/54 L 06/06/20 20:30 Pulse Ox 92 06/06/20 19:44 Body Mass Index 23.3 Const: Other: Flat affect General: cooperative and no acute distress Orientation/consciousness: patient oriented x3 HENMT: Other: Facial abrasion at the left forehead Eyes: General: appearance normal, both eyes and all related structures Resp: Effort & Inspection: normal respiratory effort and able to speak in complete sentences Cardio: Rate: regular rate Rhythm: regular rhythm GI: Palpation (GI): Soft to palpation Auscultation: normal bowel sounds Skin: General skin exam: no rashes or lesions noted Neuro: General: patient oriented x3 Cognition (Neuro): normal cognition Extrem: General: Yes normal to inspection and Yes no pedal edema Psych: Appearance: grossly normal and well kempt Results Labs CBC and Chem 7: 06/06/20 14:50 06/06/20 14:50 Labs: Laboratory Results - last 24 hr 06/06/20 06/06/20 06/06/20 14:50 14:50 14:50 MCV 100.0 H MCH 33.3 H MCHC 33.3 RDW 13.0 Plt Count 404 H MPV 9.9 Immature Gran % (Auto) 0.4 Neut % (Auto) 91.5 H Lymph % (Auto) 5.[address] % (Auto) 2.8 Eos % (Auto) 0.1 Baso % (Auto) 0.2 Lymph # (Auto) 0.[address] [place] # (Auto) 0.5 Eos # (Auto) 0.0 Baso # (Auto) 0.0 Abs Immat Gran (auto) 0.07 H Absolute Neuts (auto) 14.9 H Absolute Nucleated RBC 0.000 Nucleated RBC % (auto) 0.0 PT 12.7 INR 1.1 APTT 39.0 H Anion Gap 14 Estim Creat Clear Calc 44.3 Estimated GFR > 60 Random Glucose 95 Lactic Acid Calcium 9.1 Magnesium 2.1 Total Bilirubin 0.8 Direct Bilirubin 0.3 AST 13 ALT < 6 Alkaline Phosphatase 95 Total Creatine Kinase Troponin I High Sens B-Natriuretic Peptide Total Protein 6.3 L Albumin 3.9 Procalcitonin COVID-19 ([facility]) COVID-19 Clin Com 06/06/20 06/06/20 06/06/20 14:50 14:50 14:50 MCV MCH MCHC RDW Plt Count MPV Immature Gran % (Auto) Neut % (Auto) Lymph % (Auto) [place] % (Auto) Eos % (Auto) Baso % (Auto) Lymph # (Auto) [place] # (Auto) Eos # (Auto) Baso # (Auto) Abs Immat Gran (auto) Absolute Neuts (auto) Absolute Nucleated RBC Nucleated RBC % (auto) PT INR APTT Anion Gap Estim Creat Clear Calc Estimated GFR Random Glucose Lactic Acid Calcium Magnesium Total Bilirubin Direct Bilirubin AST ALT Alkaline Phosphatase Total Creatine Kinase 82 Troponin I High Sens 40.5 H B-Natriuretic Peptide 87 Total Protein Albumin Procalcitonin COVID-19 ([facility]) Negative COVID-19 [facility] Com See Note 06/06/20 06/06/20 06/06/20 14:50 14:51 18:20 MCV MCH MCHC RDW Plt Count MPV Immature Gran % (Auto) Neut % (Auto) Lymph % (Auto) [place] % (Auto) Eos % (Auto) Baso % (Auto) Lymph # (Auto) [place] # (Auto) Eos # (Auto) Baso # (Auto) Abs Immat Gran (auto) Absolute Neuts (auto) Absolute Nucleated RBC Nucleated RBC % (auto) PT INR APTT Anion Gap Estim Creat Clear Calc Estimated GFR Random Glucose Lactic Acid 1.6 Calcium Magnesium Total Bilirubin Direct Bilirubin AST ALT Alkaline Phosphatase Total Creatine Kinase Troponin I High Sens 36.8 H B-Natriuretic Peptide Total Protein Albumin Procalcitonin 0.39 COVID-19 ([facility]) COVID-19 Clin Com Imaging Radiologist's Impressions: Impressions Cervical Spine CT 06/06/20 14:07 IMPRESSION: Multilevel degenerative changes of the cervical spine without acute fracture or dislocation. Grade 1-2 anterolisthesis of C2 on C3 and grade 1 anterolisthesis of C3 on C4. Partially visualized groundglass opacities in the upper lobes, that may reflect infection or inflammation. Face CT 06/06/20 14:07 IMPRESSION: No acute intracranial process or discrete facial bone fracture. Head CT 06/06/20 14:10 IMPRESSION: No acute intracranial pathology. Chronic findings of microvascular ischemic changes in the subcortical and periventricular white matter, old lacunar infarct in the left zaida and right basal ganglia, and age related cortical atrophy. Hip/Pelvis X-Ray 06/06/20 14:13 IMPRESSION: No acute cardiopulmonary findings. No acute fracture or dislocation of the pelvis/right hip. Chest X-Ray 06/06/20 15:33 IMPRESSION: No acute cardiopulmonary findings. No acute fracture or dislocation of the pelvis/right hip. Assessment and Plan (1) Aspiration pneumonia: Qualifiers: Aspiration pneumonia type: unspecified Laterality: unspecified laterality Lung location: unspecified part of lung Qualified Code(s): J69.0 - Pneumonitis due to inhalation of food and vomit Status: Acute (2) Hypoxia: Status: Acute (3) Fall: Qualifiers: Encounter type: initial encounter Qualified Code(s): W19.XXXA - Unspecified fall, initial encounter Status: Acute (4) Dysphagia: Status: Acute This is a 84-year-old male with past medical history of Parkinson's disease who presents to the hospital after experiencing a fall. Concern for history she pneumonia # hypoxic respiratory failure - presented with O2 of 88% on room air - currently on 2 L of oxygen - possibly secondary to aspiration pneumonia - CT of cervical spine showed ground-glass opacities bilaterally in the lung - COVID-19 PCR negative - chest x-ray negative Plan: - will start him on Unasyn - keep him NPO given his history is dysphagia and aspiration until seen by speech therapy - titrate O2 as tolerated # aspiration pneumonia - patient hypoxic, concern for aspiration on CT chest as has bilateral ground-glass opacities - PCR COVID-19 negative - procalcitonin negative - will start him on Unasyn - follow cultures # Frequent falls - possibly secondary to his history of Parkinson's in progression of his Parkinson's disease and autonomic dysfunction - will consult Physical therapy for evaluation - orthostatic vitals were negative # dysphagia - progression of his Parkinson's disease - will consult speech therapy - per son at bedside and pt himself, there was a discussion about a PEG tube at [facility] with pt refusing at that time # Parkinson's disease - continue Sinemet # hypothyroidism - continue levothyroxine DVT prophylaxis: Heparin subQ
[2020-06-07] VITALS (9 sets, daily range): BP systolic 123–157; BP diastolic 47–83; PULSE 52–63; RESP 14–20; TEMP 36.6–36.7; O2SAT 93–100
--- NOTE | 2020-06-07 01:39 | PC.NURSE ---
Pt sleeping at this time, no acute distress noted. Awaiting admission bed assignment, will continue to monitor.
[2020-06-07 03:44] LABS: Glucose Urine UA NEG (NEG); Leukocyte Esterase Urine NEG (NEG); Nitrite Urine NEG (NEG); Specific Gravity - Urine >= 1.030 (1.005-1.025); Urine Blood NEG (NEG); Urine Ketones 5 MG/DL (NEG); Urine Protein TRACE MG/DL (NEG-TRACE)
[2020-06-07 03:45] LABS: Appearance Urine HAZY; Color Urine AMBER; UACC Culture Trigger NO
[2020-06-07] MEDS: 0.9 % Sodium Chloride Flush 3 ML SYRINGE IVFLUSH ×3 (04:15→16:40)
[2020-06-07] MEDS: Ampicillin Sodium/Sulbactam Na 1.5 GM in 0.9 % Sodium Chloride 100 ML IV ×3 (04:15→20:33)
--- NOTE | 2020-06-07 04:20 | PC.NURSE ---
Patient medicated as ordered by . Instructed to only give IV antibiotics, and flush. All other meds to be held and administered at 6am as scheduled. Pt removed condom catheter from self accidentally while repositioning, with some urine spilled onto blue kathy pad. Linen change completed without issue. Oxygen continues at 2lpm via nasal cannula. Respirations even with occasional oral suctioning with yankauer as needed. Pt tolerates all procedures well at this time. Will continue to monitor. Awaiting admission bed.
--- NOTE | 2020-06-07 06:38 | PC.NURSE ---
Spoke with the patient's daughter over the phone. Daughter states We would like to consider an alternative facility for him instead of [facility] . Daughter is a nurse practitioner and would like to speak with case management to assist with this if possible.
[2020-06-07] MEDS: Heparin Sodium,Porcine 5,000 UNIT/ML VIAL 5000 UNIT SUBCUT ×2 (06:49→18:48)
--- NOTE | 2020-06-07 06:50 | PC.NURSE ---
This RN spoke with (hospitalist). states, hold PO medications until he's evaluated by speech therapy . Pt NPO at this time. Sleeping. Will continue to monitor.
--- NOTE | 2020-06-07 07:56 | PC.NURSE ---
pt is alert and oriented to self, able to state name and date of but needed reminder that he was at [facility]. eye contact and verbal response is appropriate for setting, pt able to speak in full sentences. pt was incontinent of urine and was cleaned up and changed by staff and bed linens were changed. pt has a purple and yellow circular bruise on right hip about 3inches in diameter. no skin breakdown on legs, back or buttocks noted. pt has multiple small skin tears on left elbow that are scabbed as well as scabbed over skin tear on left knee. pt denies pain at this time. lung sounds have fine crackles in bases bilaterally and pt has a wet cough which he is able to clear himself through coughing and deep breathing. pt denies feeling short of breath and current 02 sat is 94% on 2L NC. pt is currently NPO, including oral meds, until he is seen for speech eval. Normal diet order when not NPO is thin liquids. pt is aware of plan of care for speech evaluation as well as plan for admission to hospital.
[2020-06-07 08:56] LABS: MANUAL DIFF FLAG NO
[2020-06-07 09:07] LABS: Basophils Percent Auto 0.4 % (0-2); Eosinophils Absolute Auto 0.1 X10*3/uL (0.0-0.4); Eosinophils Percent Auto 0.8 % (0-4); Hematocrit 34.1 % (42-52); Hemoglobin 11.2 g/dl (14.0-18.0); Imm Gran Abs Auto 0.07 X10*3/uL (0.00-0.03); Imm Gran Pct Auto 0.8 % (0.0-0.4); Lymphocytes Absolute Auto 1.1 X10*3/uL (1.2-4.9); Mean Corpuscular HGB Conc 32.8 g/dl (31.0-36.0); Mean Corpuscular Hemoglobin 32.9 pg (27.0-33.0); Mean Corpuscular Volume 100.3 fL (80-98); Mean Platelet Volume 10.3 fL (9.4-12.4); Monocytes Absolute Auto 0.5 X10*3/uL (0.1-1.2); Monocytes Percent Auto 5.4 % (2-11); Neutrophils Absolute Auto 7.5 X10*3/uL (2.0-8.3); Neutrophils Percent Auto 80.6 % (45-73); Platelet Count 365 X10*3/uL (160-400); Red Cell Distribution Width 12.8 % (11.0-16.0); White Blood Count 9.3 X10*3/uL (4.8-10.8)
[2020-06-07 09:24] LABS: Anion Gap 10 (12-20); Blood Urea Nitrogen 25 mg/dL (9-16); Calcium 8.6 mg/dL (8.4-10.2); Carbon Dioxide 28 mmol/L (22-29); Chloride 105 mmol/L (96-108); Creatinine Clr Calc Pharmacy 56.3; Estimated Glomerular Filt Rate > 60; Glucose Random 92 mg/dL (60-115); Potassium 4.3 mmol/L (3.3-5.1); Sodium 139 mmol/L (135-145)
--- NOTE | 2020-06-07 09:42 | MHC.CM.PN ---
CM met with Patient at bedside and spoke with Son/HCP/David @ [phone]. Patient lives alone in Independent Living and was using a walker to assist with mobility. Prior to this hospitalization, Patient was receiving STR @ [facility]. The goal for dc is NOT for Patient to return to [facility]. David has provided a few choices for other SNFs for STR, prior to returning to Independent Living with private services.IMM addressed with David and at his request, will be mailed certified letter to [facility] in [place]. PCP is Dr. Harpreet Pederson.
[2020-06-07] MEDS: Pravastatin Sodium 20 MG TABLET PO (11:03)
[2020-06-07] MEDS: Cyanocobalamin (Vitamin B-12) 1,000 MCG TABLET 1000 MCG PO (11:03)
[2020-06-07] MEDS: Cholecalciferol (Vitamin D3) 25 MCG TABLET 50 MCG PO (11:03)
[2020-06-07] MEDS: Gabapentin 100 MG CAPSULE PO ×3 (11:04→20:34)
[2020-06-07] MEDS: Docusate Sodium 100 MG CAPSULE PO (11:04)
[2020-06-07] MEDS: Aspirin Enteric Coated 81 MG TABLET.DR PO (11:05)
[2020-06-07] MEDS: Carbidopa/Levodopa 25/100 TABLET 2 TAB PO ×3 (11:05→20:33)
--- NOTE | 2020-06-07 12:07 | HO.PM.IMPN ---
Subjective Subjective Date of Service: 06/07/20 Interval History: Follow up fall. No pain. Had some coughing episodes. Physical Exam Vital Signs: Vital Signs: Last Vital Signs Temp 98 F 06/07/20 11:10 Pulse 59 06/07/20 11:10 Resp 20 06/07/20 11:10 BP 123/73 06/07/20 11:10 Pulse Ox 100 06/07/20 11:10 Body Mass Index 23.3 Appearing in no acute distress lung sounds normal expansion heart regular rate rhythm positive bowel sounds, abdomen is soft, nontender neuro patient is alert x3, no focal deficits Objective Data Current Medications Generic Name Dose Route Start Last Admin Trade Name Freq PRN Reason Stop Dose Admin Acetaminophen 650 mg 06/07/20 03:11 Acetaminophen 325 Mg Tablet PO Q6H PRN Pain, Mild (Pain Scale 1-3) Aspirin 81 mg 06/07/20 09:00 06/07/20 11:05 Aspirin Enteric Coated 81 Mg Tablet.Dr PO 81 mg DAILY KEL Administration Carbidopa/Levodopa 2 tab 06/07/20 03:11 06/07/20 11:05 Carbidopa/Levodopa 25/100 Tablet PO 2 tab QID KEL Administration Cyanocobalamin 1,000 mcg 06/07/20 09:00 06/07/20 11:03 Cyanocobalamin (Vitamin B-12) 1,000 Mcg Tablet PO 1,000 mcg DAILY KEL Administration Docusate Sodium 100 mg 06/07/20 03:11 06/07/20 11:04 Docusate Sodium 100 Mg Capsule PO 100 mg BID KEL Administration Docusate Sodium 100 mg 06/07/20 03:11 Docusate Sodium 100 Mg Capsule PO DAILY PRN Constipation Gabapentin 100 mg 06/07/20 09:00 06/07/20 11:04 Gabapentin 100 Mg Capsule PO 100 mg TID KEL Administration Heparin Sodium (Porcine) 5,000 unit 06/07/20 06:00 06/07/20 06:49 Heparin Sodium,Porcine 5,000 Unit/Ml Vial SUBCUT 5,000 unit Q12H KEL Administration Ampicillin Sodium/Sulbactam 100 mls @ 200 mls/hr 06/07/20 04:00 06/07/20 04:45 Sodium 1.5 gm/ Sodium Chloride IV Infused Q8H KEL Infusion Levothyroxine Sodium 112 mcg 06/07/20 06:00 06/07/20 06:50 Levothyroxine Sodium 112 Mcg Tablet PO Not Given DAILY@0600 KEL Melatonin 6 mg 06/07/20 03:11 Melatonin 3 Mg Tablet PO BEDTIME PRN Insomnia Non-Formulary Medication 9.5 mg 06/07/20 03:11 Rivastigmine TRANSDERMA DAILY PRN Pain, Mild Ondansetron HCl 4 mg 06/07/20 03:11 Ondansetron Hcl 4 Mg/2 Ml Vial IVPUSH Q8H PRN Nausea and Vomiting Pravastatin Sodium 20 mg 06/07/20 09:00 06/07/20 11:03 Pravastatin Sodium 20 Mg Tablet PO 20 mg DAILY KEL Administration Sodium Chloride 3 ml 06/07/20 03:11 06/07/20 11:05 0.9 % Sodium Chloride Flush 3 Ml Syringe IVFLUSH 3 ml QSHIFT KEL Administration Vitamin D 50 mcg 06/07/20 09:00 06/07/20 11:03 Cholecalciferol (Vitamin D3) 25 Mcg Tablet PO 50 mcg DAILY KEL Administration Labs CBC & Chem 7: 06/07/20 08:48 06/07/20 08:48 Assessment and Plan (1) Aspiration pneumonia: Status: Acute (2) Fall: Status: Acute (3) Hypoxia: Status: Acute (4) Dysphagia: Status: Acute Assessment and Plan: This is a 84-year-old male with past medical history of Parkinson's disease who presents to the hospital after experiencing a fall. Concern for history she pneumonia # Hypoxic respiratory failure. Secondary to aspiration pneumonia. - currently on 2 L of oxygen, titrate - Secondary to aspiration pneumonia - COVID-19 PCR negative - will start him on Unasyn # Aspiration pneumonia secondary to dysphagia - will start him on Unasyn - follow cultures - consider PEG tube due to continuous aspiration. Will discuss with patient and family. # Frequent falls - possibly secondary to his history of Parkinson's in progression of his Parkinson's disease and autonomic dysfunction - Physical therapy rec [facility] and will need services in home once discharged from [facility] - orthostatic vitals were negative # Dysphagia - progression of his Parkinson's disease - speech therapy rec honey thick liquids and pureed diet - per son at bedside and pt himself, there was a discussion about a PEG tube at [facility] with pt refusing at that time # Parkinson's disease - continue Sinemet # hypothyroidism - continue levothyroxine Attending. Dr. Ho
--- NOTE | 2020-06-07 15:43 | W.MHC.ACPN ---
Advanced Care Planning Note Advanced Care Planning Note Discussed with: patient and family member(s) Time spent (in minutes): 20 Narrative: 84 year old man admitted with aspiration pneumonia and falls. He lives alone in independent living. He has a history of parkinsons disease and his conditions seems to be worsening exhibited by more frequent falls and worsening dysphagia. Discussion was had with his son, David Acuña ([phone]) regarding the possibility of a feeding tube due to frequent episodes of aspiration pneumonia secondary to dysphagia. Initally, the patient and his son were not willing to explore the possibility of a feeding tube however at this juncture if the patient would have an improved quality of life they would consider it. His son is aware that even with a feeding tube the patient may still experience episodes of aspiration. Also discussed was the patient housing issues. He lives at an independent living facility and his wish is to return there however, he would need outside services because as of right now he does not have any in the home. David has already been in contact with the elementary school social worker regarding STR. Problems Discussed (1) Aspiration pneumonia: (2) Fall: (3) Hypoxia: (4) Dysphagia:
--- NOTE | 2020-06-07 19:14 | PC.NURSE ---
470 RIVASTIGMINE PATCH NONFORMULARY. CORA SON NOTIFIED AND INSTRUCTED TO BRING IN SOME PATCHED FROM PATIENTS HOME. STILL PENDING RECIEPT. PT WEANED OFF O2 TODAY. OOB TO CHAIR. SPEECH/PT CONSULTS.
[2020-06-08] VITALS (7 sets, daily range): BP systolic 97–147; BP diastolic 57–81; PULSE 51–85; RESP 15–20; TEMP 36.2–36.9; O2SAT 93–100
[2020-06-08] MEDS: 0.9 % Sodium Chloride Flush 3 ML SYRINGE IVFLUSH ×4 (00:58→21:19)
[2020-06-08] MEDS: Ampicillin Sodium/Sulbactam Na 1.5 GM in 0.9 % Sodium Chloride 100 ML IV ×3 (04:15→21:16)
[2020-06-08] MEDS: Heparin Sodium,Porcine 5,000 UNIT/ML VIAL 5000 UNIT SUBCUT (05:10)
[2020-06-08] MEDS: Levothyroxine Sodium 112 MCG TABLET PO (05:10)
[2020-06-08] MEDS: Aspirin 81 MG TAB.CHEW PO (08:47)
[2020-06-08] MEDS: Docusate Sodium 100 MG/10 ML LIQUID PO ×2 (08:47→21:19)
[2020-06-08] MEDS: Cholecalciferol (Vitamin D3) 25 MCG TABLET 50 MCG PO (08:48)
[2020-06-08] MEDS: Cyanocobalamin (Vitamin B-12) 1,000 MCG TABLET 1000 MCG PO (08:48)
[2020-06-08] MEDS: Pravastatin Sodium 20 MG TABLET PO (08:48)
[2020-06-08] MEDS: Carbidopa/Levodopa 25/100 TABLET 2 TAB PO ×4 (08:48→21:19)
[2020-06-08] MEDS: Gabapentin 100 MG CAPSULE PO ×3 (08:48→21:19)
--- NOTE | 2020-06-08 13:37 | HO.PM.IMPN ---
Subjective Subjective Date of Service: 06/08/20 Interval History: Follow up aspiration pneumonia. Feeling better today, no sob, still some trouble swallowing Physical Exam Vital Signs: Vital Signs: Last Vital Signs Temp 98.3 F 06/08/20 11:41 Pulse 55 06/08/20 11:41 Resp 17 06/08/20 11:41 BP 97/57 L 06/08/20 11:41 Pulse Ox 100 06/08/20 11:41 Body Mass Index 23.3 Appearing in no acute distress lung sounds normal expansion heart regular rate rhythm, clear S1, S2 positive bowel sounds, abdomen is soft, nontender neuro patient is alert x3, no focal deficits Objective Data Current Medications Generic Name Dose Route Start Last Admin Trade Name Freq PRN Reason Stop Dose Admin Acetaminophen 650 mg 06/07/20 03:11 Acetaminophen 325 Mg Tablet PO Q6H PRN Pain, Mild (Pain Scale 1-3) Aspirin 81 mg 06/08/20 09:00 06/08/20 08:47 Aspirin 81 Mg Tab.Chew PO 81 mg DAILY KEL Administration Carbidopa/Levodopa 2 tab 06/07/20 03:11 06/08/20 12:52 Carbidopa/Levodopa 25/100 Tablet PO 2 tab QID KEL Administration Cyanocobalamin 1,000 mcg 06/07/20 09:00 06/08/20 08:48 Cyanocobalamin (Vitamin B-12) 1,000 Mcg Tablet PO 1,000 mcg DAILY KEL Administration Docusate Sodium 100 mg 06/08/20 09:00 06/08/20 08:47 Docusate Sodium 100 Mg/10 Ml Liquid PO 100 mg BID KEL Administration Docusate Sodium 100 mg 06/08/20 08:37 Docusate Sodium 100 Mg/10 Ml Liquid PO DAILY PRN Constipation Gabapentin 100 mg 06/07/20 09:00 06/08/20 08:48 Gabapentin 100 Mg Capsule PO 100 mg TID KEL Administration Heparin Sodium (Porcine) 5,000 unit 06/07/20 06:00 06/08/20 05:10 Heparin Sodium,Porcine 5,000 Unit/Ml Vial SUBCUT 5,000 unit Q12H KEL Administration Ampicillin Sodium/Sulbactam 100 mls @ 200 mls/hr 06/07/20 04:00 06/08/20 12:51 Sodium 1.5 gm/ Sodium Chloride IV 200 mls/hr Q8H KEL Administration Levothyroxine Sodium 112 mcg 06/07/20 06:00 06/08/20 05:10 Levothyroxine Sodium 112 Mcg Tablet PO 112 mcg DAILY@0600 KEL Administration Melatonin 6 mg 06/07/20 03:11 Melatonin 3 Mg Tablet PO BEDTIME PRN Insomnia Patient Own 9.5 each 06/08/20 21:00 Medication ( TRANSDERMA Rivastigmine 9.5 Mg/ BEDTIME KEL 24h Patch) Ondansetron HCl 4 mg 06/07/20 03:11 Ondansetron Hcl 4 Mg/2 Ml Vial IVPUSH Q8H PRN Nausea and Vomiting Pravastatin Sodium 20 mg 06/07/20 09:00 06/08/20 08:48 Pravastatin Sodium 20 Mg Tablet PO 20 mg DAILY KEL Administration Sodium Chloride 3 ml 06/07/20 03:11 06/08/20 08:47 0.9 % Sodium Chloride Flush 3 Ml Syringe IVFLUSH 3 ml QSHIFT KEL Administration Vitamin D 50 mcg 06/07/20 09:00 06/08/20 08:48 Cholecalciferol (Vitamin D3) 25 Mcg Tablet PO 50 mcg DAILY KEL Administration Labs CBC & Chem 7: 06/07/20 08:48 06/07/20 08:48 Microbiology Microbiology Results: Microbiology 06/06/20 14:51 Blood - Venous Blood Culture - Preliminary No growth after 24 hours. 06/06/20 14:50 Blood - Venous Blood Culture - Preliminary No growth after 24 hours. Assessment and Plan (1) Aspiration pneumonia: Status: Acute (2) Fall: Status: Acute (3) Hypoxia: Status: Acute (4) Dysphagia: Status: Acute Assessment and Plan: This is a 84-year-old male with past medical history of Parkinson's disease who presents to the hospital after experiencing a fall. Concern for aspiration pneumonia. # Aspiration pneumonia secondary to dysphagia. Patient and family are opting to have a PEG tube placed due to frequent aspiration. - General surgery consultation, already seen and evaluated by speech therapy - Continue Unasyn - follow cultures # Hypoxic respiratory failure. Secondary to aspiration pneumonia. Resolved. - currently on room air - COVID-19 PCR negative - continue Unasyn # Frequent falls - possibly secondary to his history of Parkinson's in progression of his Parkinson's disease and autonomic dysfunction - Physical therapy rec [facility] and will need services in home once discharged from [facility] - orthostatic vitals were negative # Dysphagia - progression of his Parkinson's disease - speech therapy rec honey thick liquids and pureed diet however records that the speech therapist obtained from [facility] stated that the patient was on clears therfore will keep on clear diet for now and NPO after midnight for possible PEG tube placement - will need barium swallow while inpatient. # Parkinson's disease - continue Sinemet # hypothyroidism - continue levothyroxine Attending. Dr. oH
--- NOTE | 2020-06-08 14:56 | PM.CNGS ---
History of Present Illness Consult details Consult date: 06/08/20 <Richa Mckay PA-C - Last Filed: 06/08/20 15:45> Reason for consult: other (PEG tube) <STERLING Gil Last Filed: 06/08/20 15:45> Requesting physician: Raymond Ho <STERLING Gil Last Filed: 06/08/20 15:45> Narrative: 84-year-old male PMH of Parkinson's disease who presented to the ED after a fall at his rehab facility. Per report from the nursing facility, patient was last seen around 9:00 AM and he was found on the floor between his bed in his wheelchair at 1130 AM, with the thought that he may have been trying to get from his bed to his wheelchair. On arrival to the ED, the patient was hemodynamically stable but found to have 88% O2 saturation on room air. Labs were significant for a WBC count of 16.3, initial high sensitivity troponin of 40.5 and 36.8 on repeat, BNP of 87. Cervical spine CT showed ground-glass opacities in the lungs bilaterally. All other imaging negative. He was admitted to the medical service and started on unasyn with concern for aspiration pneumonia. He was kept NPO given his history of dysphagia and aspiration. Patient had a recent admission at [facility] following a fall where he sustained 6 rib fractures and was also found to have dysphagia and aspiration. Surgery was consulted for possible PEG tube placement, which was previously discussed during his recent stay at [facility], however the patient had refused then. <Richa Mckay PA-C - Last Filed: 06/08/20 15:45> Review of Systems Constitutional: Constitutional: Denies chills, Denies fever(s), Reports frequent falls and Reports weakness <STERLING Gil Last Filed: 06/08/20 15:45> Cardiovascular: Cardiovascular: Denies chest pain and Denies dyspnea <STERLING Gil Last Filed: 06/08/20 15:45> Respiratory: Respiratory: Denies cough and Denies dyspnea <STERLING Gil Last Filed: 06/08/20 15:45> Gastrointestinal: Gastrointestinal: Denies abdominal pain, Denies diarrhea, Denies nausea and Denies vomiting <Richa Mckay PA-C - Last Filed: 06/08/20 15:45> Genitourinary: Genitourinary: Denies hematuria <Richa Mckay PA-C - Last Filed: 06/08/20 15:45> Neurologic: Reports frequent falls and Reports weakness <Richa Mckay PA-C - Last Filed: 06/08/20 15:45> [facility] Past Medical History Medical History: Medical History Dysphagia Epistaxis Falls Cuellar catheter problem High cholesterol Hypothyroid Parkinsons <Richa Mckay PA-C - Last Filed: 06/08/20 15:45> Surgical History Surgical History: Surgical History (Updated 06/08/20 @ 15:33 by Richa Mckay PA-C) History of appendectomy (~194) <Richa Mckay PA-C - Last Filed: 06/08/20 15:45> Social History Social History: Social History Household Members: None Housing: Assisted Living Facility Do you presently have visiting nurse or other home services: No Alcohol intake: never Smoking Status: Never smoker Use of substances other than those prescribed or required for medical reasons: No Currently Displaying Signs/Symptoms of Drug Intoxication Withdrawal: No Have you been hit, kicked, punched, or otherwise hurt by someone within the past year? If so, by whom?: No Do you feel safe in your current relationship?: Yes Is there a partner from a previous relationship who is making you feel unsafe now?: No Are you made to feel afraid or neglected: No Advance Directives: No Advance Directives Information Provided: No ([facility]) Advance Directives on File: No Do you have thoughts of harming others: None Do you have a plan to hurt others: No Plan Recently lost weight without trying: Unsure service: Yes Current occupational status: retired <Richa Mckay PA-C - Last Filed: 06/08/20 15:45> Meds Allergies/Adverse reactions: Allergies Allergy/AdvReac Type Severity Reaction Status Date / Time No Known Allergies Allergy Verified 06/06/20 13:17 <Richa Mckay PA-C - Last Filed: 06/08/20 15:45> Active Medications: Current Medications Generic Name Dose Route Start Last Admin Trade Name Freq PRN Reason Stop Dose Admin Acetaminophen 650 mg 06/07/20 03:11 Acetaminophen 325 Mg Tablet PO Q6H PRN Pain, Mild (Pain Scale 1-3) Aspirin 81 mg 06/08/20 09:00 06/08/20 08:47 Aspirin 81 Mg Tab.Chew PO 81 mg DAILY KEL Administration Carbidopa/Levodopa 2 tab 06/07/20 03:11 06/08/20 12:52 Carbidopa/Levodopa 25/100 Tablet PO 2 tab QID KEL Administration Cyanocobalamin 1,000 mcg 06/07/20 09:00 06/08/20 08:48 Cyanocobalamin (Vitamin B-12) 1,000 Mcg Tablet PO 1,000 mcg DAILY KEL Administration Docusate Sodium 100 mg 06/08/20 09:00 06/08/20 08:47 Docusate Sodium 100 Mg/10 Ml Liquid PO 100 mg BID KEL Administration Docusate Sodium 100 mg 06/08/20 08:37 Docusate Sodium 100 Mg/10 Ml Liquid PO DAILY PRN Constipation Gabapentin 100 mg 06/07/20 09:00 06/08/20 08:48 Gabapentin 100 Mg Capsule PO 100 mg TID KEL Administration Heparin Sodium (Porcine) 5,000 unit 06/07/20 06:00 06/08/20 05:10 Heparin Sodium,Porcine 5,000 Unit/Ml Vial SUBCUT 5,000 unit Q12H KEL Administration Ampicillin Sodium/Sulbactam 100 mls @ 200 mls/hr 06/07/20 04:00 06/08/20 13:41 Sodium 1.5 gm/ Sodium Chloride IV Infused Q8H KEL Infusion Levothyroxine Sodium 112 mcg 06/07/20 06:00 06/08/20 05:10 Levothyroxine Sodium 112 Mcg Tablet PO 112 mcg DAILY@0600 KEL Administration Melatonin 6 mg 06/07/20 03:11 Melatonin 3 Mg Tablet PO BEDTIME PRN Insomnia Patient Own 9.5 each 06/08/20 21:00 Medication ( TRANSDERMA Rivastigmine 9.5 Mg/ BEDTIME KEL 24h Patch) Ondansetron HCl 4 mg 06/07/20 03:11 Ondansetron Hcl 4 Mg/2 Ml Vial IVPUSH Q8H PRN Nausea and Vomiting Pravastatin Sodium 20 mg 06/07/20 09:00 06/08/20 08:48 Pravastatin Sodium 20 Mg Tablet PO 20 mg DAILY KEL Administration Sodium Chloride 3 ml 06/07/20 03:11 06/08/20 08:47 0.9 % Sodium Chloride Flush 3 Ml Syringe IVFLUSH 3 ml QSHIFT KEL Administration Vitamin D 50 mcg 06/07/20 09:00 06/08/20 08:48 Cholecalciferol (Vitamin D3) 25 Mcg Tablet PO 50 mcg DAILY KEL Administration <Richa Mckay PA-C - Last Filed: 06/08/20 15:45> Home medications: Home Medications Medication Instructions Recorded Confirmed Last Taken Type aspirin [Aspir-81] 81 mg PO DAILY 06/06/20 06/06/20 06/06/20 History carbidopa-levodopa [Sinemet] 2 tab PO QID 06/06/20 06/06/20 Unknown History cholecalciferol (vitamin D3) 2,000 mcg PO DAILY 06/06/20 06/06/20 06/06/20 History [Vitamin D3] cyanocobalamin (vitamin B-12) 1,000 mcg PO DAILY 06/06/20 06/06/20 Unknown History docusate sodium [Colace] 100 mg PO BID 06/06/20 06/06/20 06/06/20 History food supplemt, lactose-reduced See Rx Instructions .ROUTE .COMPLEX 06/06/20 06/06/20 06/06/20 History [Ensure] gabapentin 100 mg PO TID 06/06/20 06/06/20 06/06/20 08:00 History ibuprofen 800 mg PO TID PRN 06/06/20 06/06/20 Unknown History levothyroxine 112 mcg PO DAILY 06/06/20 06/06/20 Unknown History melatonin 5 mg PO BEDTIME PRN 06/06/20 06/06/20 Unknown History pravastatin [Pravachol] 20 mg PO DAILY 06/06/20 06/06/20 Unknown History rivastigmine 9.5 mg TRANSDERMAL DAILY PRN 06/06/20 06/06/20 Unknown History senna 10 ml PO BEDTIME PRN 06/06/20 06/06/20 Unknown History <MARY Gil - Last Filed: 06/08/20 15:45> Physical Exam Vital Signs: Vital Signs: Last Vital Signs Temp 98.3 F 06/08/20 11:41 Pulse 55 06/08/20 11:41 Resp 17 06/08/20 11:41 BP 97/57 L 06/08/20 11:41 Pulse Ox 100 06/08/20 11:41 Body Mass Index 23.3 <[facility] Last Filed: 06/08/20 15:45> Const: General: no acute distress and alert <MARY Gil Corindus Last Filed: 06/08/20 15:45> Nutritional Appearance: cachectic <MARY Gil Corindus Last Filed: 06/08/20 15:45> Orientation/consciousness: patient oriented x3 <MARY Gil Corindus Last Filed: 06/08/20 15:45> Eyes: Other: small laceration and ecchymosis proximal to left eye <MARY Gil Corindus Last Filed: 06/08/20 15:45> Sclerae: sclerae normal <EMILY Gil Last Filed: 06/08/20 15:45> Resp: Effort & Inspection: normal respiratory effort <MARY Gil Corindus Last Filed: 06/08/20 15:45> Cardio: Rate: regular rate <MARY Gil Corindus Last Filed: 06/08/20 15:45> GI: Inspection: No distended and Yes scar (Mcburney scar present) <EMILY Gil Corindus Last Filed: 06/08/20 15:45> Palpation (GI): Soft to palpation, nontender, no guarding and not rigid <MARY Gil Corindus Last Filed: 06/08/20 15:45> Percussion: Yes normal to percussion <MARY Gil Corindus Last Filed: 06/08/20 15:45> Skin: Other: warm and dry <Richa Mckay PA-C - Last Filed: 06/08/20 15:45> Neuro: General: patient oriented x3 <Richa Mckay PA-C - Last Filed: 06/08/20 15:45> Extrem: General: Yes no clubbing, cyanosis or edema <Richa Mckay PA-C - Last Filed: 06/08/20 15:45> Results Labs Result diagrams: : 06/07/20 08:48 06/07/20 08:48 <Richa Mckay PA-C - Last Filed: 06/08/20 15:45> Labs: Urine 06/07/20 Range/Units 03:35 Urine Color HOWIE Urine Appearance HAZY Urine pH 5.0 (5.0-8.0) Ur Specific Nickerson >= 1.030 H (1.005-1.025) Urine Protein TRACE (NEG-TRACE) MG/DL Urine Glucose (UA) NEG (NEG) MG/DL All other labs normal. <Richa Mckay PA-C - Last Filed: 06/08/20 15:45> Assessment and Plan (1) Aspiration pneumonia: Qualifiers: Aspiration pneumonia type: unspecified Laterality: unspecified laterality Lung location: unspecified part of lung Qualified Code(s): J69.0 - Pneumonitis due to inhalation of food and vomit <Richa Mckay PA-C - Last Filed: 06/08/20 15:45> Status: Acute <Richa Mckay PA-C - Last Filed: 06/08/20 15:45> Patient seen and examined Appears very frail Able to answer questions Abdomen soft He had repeated aspiration pneumonia with Parkinson's disease I have been trying to get hold of the son David Acuña at [phone] - unable to reach him yet Will do PEG wants family consents - will review procedure as well as the risks, benefits, and alternatives with family and patient <Jerry Davenport MD - Last Filed: 06/08/20 16:32> (2) Dysphagia: Status: Acute <Richa Mckay PA-C - Last Filed: 06/08/20 15:45> 84 year old male with PMH of Parkinson's disease, frequent falls, dysphagia and aspiration pneumonia who presented to ED after a fall at [facility], found to have an oxygen saturation in the high 80s upon presentation. He was admitted to the medical service and is being treated for aspiration pneumonia and was started on Unasyn. His WBC has normalized and O2 sat improved since admission. Patient has had difficulty with dysphagia and aspiration, as found during his recent admission following a fall 8-9 days ago at [facility]. He refused PEG tube placement at that time. Patient is a candidate for PEG tube and would probably increase his quality of life. Patient is open to proceeding. This will be discussed with his healthcare proxy and son. If agreeable, will add onto schedule for tomorrow. Patient discussed with and seen by. Dr. Davenport. <Richa Mckay PA-C - Last Filed: 06/08/20 15:45>
--- NOTE | 2020-06-08 14:59 | MHC.SLORD ---
CONTACT OFFICER contacted CONTACT OFFICER at [facility] who was able to provide information regarding results of MBSS completed on 05/24. Recommendation for CLEAR LIQUID ONLY due to significant pharyngeal residue which was subsequently aspirated based on pt's performance during MBSS. CONTACT OFFICER to fax MBSS report this evening or first thing tomorrow morning. This CONTACT OFFICER called Vaishali Plunkett NP to relay this information. HANDICRAFTS TEACHER stated pt's family decided on PEG tube placement however, would still like pt to receive PO. Based on recommendations from MBSS at [facility], CONTACT OFFICER now recommending UPGRADE to THIN LIQUIDS ONLY. CONTACT OFFICER will continue to follow during hospitalization. A repeat MBSS might be warranted to determine safest solid PO consistency. Name: Los Acuña Date of : 1935 Age: 84 Date of Registration: 06/07/20 Speech Language Pathology Order Status:
--- NOTE | 2020-06-08 16:56 | PM.EVENT ---
Event Note Date of Service: 06/08/20 Event Note: I was able to talk to patient's son Los I had a long discussion with him about technique of PEG placement I explained to him the risks including but not limited to bleeding, infections, bowel injury, tube dislodgement, loss of airway He is still trying to make sure that the patient will have resources available to him for care of the tube including tube feeding itself at the facility where he is at He does not feel ready to proceed tomorrow - will rediscuss tomorrow with him
[2020-06-08] MEDS: Melatonin 3 MG TABLET 6 MG PO (21:19)
[2020-06-09 03:15] VITALS: BP 154/83; PULSE 51; RESP 15; TEMP 36.3; O2SAT 97
[2020-06-09] MEDS: Ampicillin Sodium/Sulbactam Na 1.5 GM in 0.9 % Sodium Chloride 100 ML IV ×3 (04:19→20:51)
[2020-06-09] MEDS: Levothyroxine Sodium 112 MCG TABLET PO (05:34)
[2020-06-09] MEDS: Heparin Sodium,Porcine 5,000 UNIT/ML VIAL 5000 UNIT SUBCUT ×2 (05:34→17:08)
[2020-06-09 06:14] LABS: MANUAL DIFF FLAG NO
[2020-06-09 06:24] LABS: Basophils Percent Auto 0.3 % (0-2); Eosinophils Absolute Auto 0.1 X10*3/uL (0.0-0.4); Eosinophils Percent Auto 1.4 % (0-4); Hematocrit 34.4 % (42-52); Hemoglobin 11.1 g/dl (14.0-18.0); Imm Gran Abs Auto 0.03 X10*3/uL (0.00-0.03); Imm Gran Pct Auto 0.5 % (0.0-0.4); Lymphocytes Absolute Auto 1.5 X10*3/uL (1.2-4.9); Lymphocytes Percent Auto 22.6 % (20-40); Mean Corpuscular HGB Conc 32.3 g/dl (31.0-36.0); Mean Corpuscular Hemoglobin 32.7 pg (27.0-33.0); Mean Corpuscular Volume 101.5 fL (80-98); Mean Platelet Volume 10.3 fL (9.4-12.4); Monocytes Absolute Auto 0.5 X10*3/uL (0.1-1.2); Monocytes Percent Auto 6.8 % (2-11); Neutrophils Absolute Auto 4.6 X10*3/uL (2.0-8.3); Neutrophils Percent Auto 68.4 % (45-73); Platelet Count 335 X10*3/uL (160-400); Red Blood Count 3.39 X10*6/uL (4.60-5.80); Red Cell Distribution Width 13.2 % (11.0-16.0); White Blood Count 6.7 X10*3/uL (4.8-10.8)
[2020-06-09 06:28] LABS: Prothrombin Time 12.3 SEC (10.8-13.0)
[2020-06-09 06:48] LABS: Anion Gap 12 (12-20); Blood Urea Nitrogen 25 mg/dL (9-16); Calcium 8.7 mg/dL (8.4-10.2); Carbon Dioxide 26 mmol/L (22-29); Chloride 104 mmol/L (96-108); Creatinine Clr Calc Pharmacy 64.4; Estimated Glomerular Filt Rate > 60; Glucose Random 91 mg/dL (60-115); Potassium 4.4 mmol/L (3.3-5.1); Sodium 138 mmol/L (135-145)
--- NOTE | 2020-06-09 07:41 | W.MHC.ACPN ---
Advanced Care Planning Note Advanced Care Planning Note Discussed with: patient and family member(s) Time spent (in minutes): 16 Narrative: 84 year old man admitted with aspiration pneumonia and falls. Over the last few days there have been several conversations regarding the patients care after hospitalizations. Initially the patients family wanted the patient to have PEG tube placed for nutrition however, there is concern regarding who will do the feedings when the patient gets home. He lives in independent living and does not have any home services. The family does not want the patient to go to middle or intermediate school principal care and they are willing to pay out of pocket for services for him at home. Also discussed was hospice which can be another option if the patient opts out of the peg tube. The patient will have a barium swallow tomorrow to evaluate swallowing and determine the best diet. He has been NPO on IV fluids. (Son David Acuña [phone]) Problems Discussed (1) Aspiration pneumonia:
[2020-06-09 08:00] VITALS: BP 143/87; PULSE 66; RESP 18; TEMP 35.1; O2SAT 100
[2020-06-09] MEDS: Gabapentin 100 MG CAPSULE PO ×3 (08:46→20:50)
[2020-06-09] MEDS: Carbidopa/Levodopa 25/100 TABLET 2 TAB PO ×4 (08:46→20:50)
[2020-06-09] MEDS: Cyanocobalamin (Vitamin B-12) 1,000 MCG TABLET 1000 MCG PO (08:47)
[2020-06-09] MEDS: Pravastatin Sodium 20 MG TABLET PO (08:47)
[2020-06-09] MEDS: Cholecalciferol (Vitamin D3) 25 MCG TABLET 50 MCG PO (08:47)
[2020-06-09] MEDS: Aspirin 81 MG TAB.CHEW PO (08:48)
[2020-06-09] MEDS: Docusate Sodium 100 MG/10 ML LIQUID PO ×2 (08:48→20:50)
[2020-06-09] MEDS: Dextrose 5 % and 0.9 % NaCl 1,000 ML 80 ML IVCONT ×2 (08:54→21:07)
[2020-06-09] MEDS: 0.9 % Sodium Chloride Flush 3 ML SYRINGE IVFLUSH ×3 (09:00→20:52)
--- NOTE | 2020-06-09 12:59 | P.PNGS_ITS ---
Subjective Subjective Date of Service: 06/09/20 Interval history: No events reported Patient seems to be weaker today Remains NPO Physical Exam Vital Signs: Vital Signs: Last Vital Signs Temp 95.1 F L 06/09/20 08:00 Pulse 66 06/09/20 08:00 Resp 18 06/09/20 08:00 BP 143/87 H 06/09/20 08:00 Pulse Ox 100 06/09/20 08:00 Body Mass Index 23.3 Const: Other: Very frail looking answer some questions General: no acute distress Resp: Effort & Inspection: normal respiratory effort GI: Other: No obvious abdominal scars Palpation (GI): Soft to palpation, not firm, nontender and no guarding Progress Note: A&P Assessment and plan (1) Aspiration pneumonia: Status: Acute Assessment and Plan: He was referred to me for PEG tube placement I had discussed this with his son David last night He would like to hold off for now until he is certain that there will be arrangements and resources for care of the PEG tube I have discussed this with the case management manager as well Will schedule for PEG tube once the son David decides to move forward Fall Risk Details Current Medications: Current Medications Generic Name Dose Route Start Last Admin Trade Name Freq PRN Reason Stop Dose Admin Acetaminophen 650 mg 06/07/20 03:11 Acetaminophen 325 Mg Tablet PO Q6H PRN Pain, Mild (Pain Scale 1-3) Aspirin 81 mg 06/08/20 09:00 06/09/20 08:48 Aspirin 81 Mg Tab.Chew PO 81 mg DAILY KEL Administration Carbidopa/Levodopa 2 tab 06/07/20 03:11 06/09/20 12:30 Carbidopa/Levodopa 25/100 Tablet PO 2 tab QID KEL Administration Cyanocobalamin 1,000 mcg 06/07/20 09:00 06/09/20 08:47 Cyanocobalamin (Vitamin B-12) 1,000 Mcg Tablet PO 1,000 mcg DAILY KEL Administration Docusate Sodium 100 mg 06/08/20 09:00 06/09/20 08:48 Docusate Sodium 100 Mg/10 Ml Liquid PO 100 mg BID KEL Administration Docusate Sodium 100 mg 06/08/20 08:37 Docusate Sodium 100 Mg/10 Ml Liquid PO DAILY PRN Constipation Gabapentin 100 mg 06/07/20 09:00 06/09/20 08:46 Gabapentin 100 Mg Capsule PO 100 mg TID KEL Administration Heparin Sodium (Porcine) 5,000 unit 06/07/20 06:00 06/09/20 05:34 Heparin Sodium,Porcine 5,000 Unit/Ml Vial SUBCUT 5,000 unit Q12H KEL Administration Ampicillin Sodium/Sulbactam 100 mls @ 200 mls/hr 06/07/20 04:00 06/09/20 12:58 Sodium 1.5 gm/ Sodium Chloride IV Infused Q8H KEL Infusion Dextrose/Sodium Chloride 1,000 mls @ 80 mls/hr 06/09/20 08:00 06/09/20 08:54 D5ns IVCONT 80 mls/hr .[id number] KEL Administration Levothyroxine Sodium 112 mcg 06/07/20 06:00 06/09/20 05:34 Levothyroxine Sodium 112 Mcg Tablet PO 112 mcg DAILY@0600 KEL Administration Melatonin 6 mg 06/07/20 03:11 06/08/20 21:19 Melatonin 3 Mg Tablet PO 6 mg BEDTIME PRN Administration Insomnia Patient Own 9.5 each 06/08/20 21:00 06/08/20 21:30 Medication ( TRANSDERMA 9.5 each Rivastigmine 9.5 Mg/ BEDTIME KEL Administration 24h Patch) Ondansetron HCl 4 mg 06/07/20 03:11 Ondansetron Hcl 4 Mg/2 Ml Vial IVPUSH Q8H PRN Nausea and Vomiting Pravastatin Sodium 20 mg 06/07/20 09:00 06/09/20 08:47 Pravastatin Sodium 20 Mg Tablet PO 20 mg DAILY KEL Administration Sodium Chloride 3 ml 06/07/20 03:11 06/09/20 09:00 0.9 % Sodium Chloride Flush 3 Ml Syringe IVFLUSH 3 ml QSHIFT KEL Administration Vitamin D 50 mcg 06/07/20 09:00 06/09/20 08:47 Cholecalciferol (Vitamin D3) 25 Mcg Tablet PO 50 mcg DAILY KEL Administration Time Spent With Patient Time: Total time spent is greater than 50% in coordination of care (as catherine dumont) at patient's floor/unit and/or counseling patient: Time with patient: 15 - 24 minutes
--- NOTE | 2020-06-09 13:38 | MHC.CM.PN ---
DP MALE 84 DX ASPIRATION PNEUMONIA RECURRANT FALLS. Spoke with Son David this am. The DC plan is to return to [facility] with private pay help. The preferred providers @ [facility] are [facility] as well as [facility]. The barriers are that [facility] does not have a contract with [facility] and [facility] does not manage Peg Tube feedings. David stated that he would call the world renowned chef and restaurant owner of [employer]. He is requesting an accommodation be made to include administration of Enteral supplementation. A call was received, from David during the documentation of this note. [facility] has declined to provide Peg tube management. He requested [facility] be called to assess coverage for Skilled and private pay.
--- NOTE | 2020-06-09 14:00 | HO.PM.IMPN ---
Subjective Subjective Date of Service: 06/09/20 Interval History: Follow up aspiration pneumonia. No shortness of breath. Some coughing. Physical Exam Vital Signs: Vital Signs: Last Vital Signs Temp 95.1 F L 06/09/20 08:00 Pulse 66 06/09/20 08:00 Resp 18 06/09/20 08:00 BP 143/87 H 06/09/20 08:00 Pulse Ox 100 06/09/20 08:00 Body Mass Index 23.3 Appearing in no acute distress lung sounds normal expansion heart regular rate rhythm, clear S1, S2 positive bowel sounds, abdomen is soft, nontender neuro patient is alert x3, no focal deficits Objective Data Current Medications Generic Name Dose Route Start Last Admin Trade Name Freq PRN Reason Stop Dose Admin Acetaminophen 650 mg 06/07/20 03:11 Acetaminophen 325 Mg Tablet PO Q6H PRN Pain, Mild (Pain Scale 1-3) Aspirin 81 mg 06/08/20 09:00 06/09/20 08:48 Aspirin 81 Mg Tab.Chew PO 81 mg DAILY KEL Administration Carbidopa/Levodopa 2 tab 06/07/20 03:11 06/09/20 12:30 Carbidopa/Levodopa 25/100 Tablet PO 2 tab QID KEL Administration Cyanocobalamin 1,000 mcg 06/07/20 09:00 06/09/20 08:47 Cyanocobalamin (Vitamin B-12) 1,000 Mcg Tablet PO 1,000 mcg DAILY KEL Administration Docusate Sodium 100 mg 06/08/20 09:00 06/09/20 08:48 Docusate Sodium 100 Mg/10 Ml Liquid PO 100 mg BID KEL Administration Docusate Sodium 100 mg 06/08/20 08:37 Docusate Sodium 100 Mg/10 Ml Liquid PO DAILY PRN Constipation Gabapentin 100 mg 06/07/20 09:00 06/09/20 08:46 Gabapentin 100 Mg Capsule PO 100 mg TID KEL Administration Heparin Sodium (Porcine) 5,000 unit 06/07/20 06:00 06/09/20 05:34 Heparin Sodium,Porcine 5,000 Unit/Ml Vial SUBCUT 5,000 unit Q12H KEL Administration Ampicillin Sodium/Sulbactam 100 mls @ 200 mls/hr 06/07/20 04:00 06/09/20 12:58 Sodium 1.5 gm/ Sodium Chloride IV Infused Q8H KEL Infusion Dextrose/Sodium Chloride 1,000 mls @ 80 mls/hr 06/09/20 08:00 06/09/20 08:54 D5ns IVCONT 80 mls/hr .[id number] KEL Administration Levothyroxine Sodium 112 mcg 06/07/20 06:00 06/09/20 05:34 Levothyroxine Sodium 112 Mcg Tablet PO 112 mcg DAILY@0600 KEL Administration Melatonin 6 mg 06/07/20 03:11 06/08/20 21:19 Melatonin 3 Mg Tablet PO 6 mg BEDTIME PRN Administration Insomnia Patient Own 9.5 each 06/08/20 21:00 06/08/20 21:30 Medication ( TRANSDERMA 9.5 each Rivastigmine 9.5 Mg/ BEDTIME KEL Administration 24h Patch) Ondansetron HCl 4 mg 06/07/20 03:11 Ondansetron Hcl 4 Mg/2 Ml Vial IVPUSH Q8H PRN Nausea and Vomiting Pravastatin Sodium 20 mg 06/07/20 09:00 06/09/20 08:47 Pravastatin Sodium 20 Mg Tablet PO 20 mg DAILY KEL Administration Sodium Chloride 3 ml 06/07/20 03:11 06/09/20 09:00 0.9 % Sodium Chloride Flush 3 Ml Syringe IVFLUSH 3 ml QSHIFT KEL Administration Vitamin D 50 mcg 06/07/20 09:00 06/09/20 08:47 Cholecalciferol (Vitamin D3) 25 Mcg Tablet PO 50 mcg DAILY KEL Administration Labs CBC & Chem 7: 06/09/20 05:35 06/09/20 05:35 Microbiology Microbiology Results: Microbiology 06/06/20 14:51 Blood - Venous Blood Culture - Preliminary No growth after 48 hours. 06/06/20 14:50 Blood - Venous Blood Culture - Preliminary No growth after 48 hours. Assessment and Plan (1) Aspiration pneumonia: Status: Acute Assessment and Plan: This is a 84-year-old male with past medical history of Parkinson's disease who presents to the hospital after experiencing a fall. Concern for aspiration pneumonia. # Aspiration pneumonia secondary to dysphagia. Patient and family are opting to have a PEG tube placed due to frequent aspiration. - General surgery consultation, already seen and evaluated by speech therapy, waiting on family to decide if they will move ahead with the PEG tube. -Barium swallow tomorrow. - Continue Unasyn - follow cultures # Dysphagia - progression of his Parkinson's disease - speech therapy rec Keeping NPO as he is now having trouble even with thin and thickened liquids. - barium swallow tomorrow # Hypoxic respiratory failure. Secondary to aspiration pneumonia. Resolved. - currently on room air - COVID-19 PCR negative - continue Unasyn # Frequent falls - possibly secondary to his history of Parkinson's in progression of his Parkinson's disease and autonomic dysfunction - Physical therapy rec [facility] and will need services in home once discharged from [facility] - orthostatic vitals were negative #Protein calorie malnutrition. NPO for now, barium swallow pending. # Parkinson's disease - continue Sinemet # hypothyroidism - continue levothyroxine Attending. Dr. Ho
[2020-06-09 15:03] VITALS: BP 141/78; PULSE 58; RESP 20; TEMP 36.4; O2SAT 96
--- NOTE | 2020-06-09 16:46 | PM.EVENT ---
Event Note Date of Service: 06/09/20 Event Note: I had spoken to his son David and he wants to proceed with PEG tube placement for is that Los Acuña I reviewed with aDvid the technique of PEG tube placement I explained the risks including but not limited to bleeding, infections, bowel injury, tube dislodgement, leakage within the abdomen within the peritoneum, loss of airway during the procedure as well as the benefits and alternatives Patient does have recurrent pneumonia from aspiration so the son wants to proceed I will put the patient on the OR schedule for tomorrow son David has given verbal consent
[2020-06-09 19:00] VITALS: BP 155/80; PULSE 57; RESP 19; TEMP 36.6; O2SAT 99
[2020-06-09 23:48] VITALS: BP 142/75; PULSE 60; RESP 18; TEMP 36.6; O2SAT 100
[2020-06-10] VITALS (12 sets, daily range): BP systolic 116–173; BP diastolic 68–95; PULSE 54–88; RESP 10–20; TEMP 36.2–37.5; O2SAT 96–100
[2020-06-10] MEDS: Ampicillin Sodium/Sulbactam Na 1.5 GM in 0.9 % Sodium Chloride 100 ML IV ×3 (04:25→21:15)
[2020-06-10] MEDS: Heparin Sodium,Porcine 5,000 UNIT/ML VIAL 5000 UNIT SUBCUT ×2 (04:25→16:30)
[2020-06-10 06:27] LABS: MANUAL DIFF FLAG NO
[2020-06-10 06:46] LABS: Basophils Percent Auto 0.3 % (0-2); Eosinophils Absolute Auto 0.1 X10*3/uL (0.0-0.4); Eosinophils Percent Auto 1.1 % (0-4); Hematocrit 31.7 % (42-52); Hemoglobin 10.5 g/dl (14.0-18.0); Imm Gran Abs Auto 0.05 X10*3/uL (0.00-0.03); Imm Gran Pct Auto 0.8 % (0.0-0.4); Lymphocytes Absolute Auto 1.4 X10*3/uL (1.2-4.9); Lymphocytes Percent Auto 20.6 % (20-40); Mean Corpuscular HGB Conc 33.1 g/dl (31.0-36.0); Mean Corpuscular Hemoglobin 33.3 pg (27.0-33.0); Mean Corpuscular Volume 100.6 fL (80-98); Mean Platelet Volume 10.5 fL (9.4-12.4); Monocytes Absolute Auto 0.4 X10*3/uL (0.1-1.2); Monocytes Percent Auto 5.7 % (2-11); Neutrophils Absolute Auto 4.8 X10*3/uL (2.0-8.3); Neutrophils Percent Auto 71.5 % (45-73); Platelet Count 302 X10*3/uL (160-400); Red Blood Count 3.15 X10*6/uL (4.60-5.80); Red Cell Distribution Width 13.1 % (11.0-16.0); White Blood Count 6.7 X10*3/uL (4.8-10.8)
[2020-06-10 07:10] LABS: Anion Gap 14 (12-20); Blood Urea Nitrogen 18 mg/dL (9-16); Carbon Dioxide 23 mmol/L (22-29); Chloride 106 mmol/L (96-108); Creatinine Clr Calc Pharmacy 70.8; Estimated Glomerular Filt Rate > 60; Glucose Random 99 mg/dL (60-115); Potassium 3.9 mmol/L (3.3-5.1); Sodium 139 mmol/L (135-145)
[2020-06-10] MEDS: Dextrose 5 % and 0.9 % NaCl 1,000 ML 80 ML IVCONT ×2 (08:24→20:55)
--- NOTE | 2020-06-10 10:27 | MHC.SLORD ---
Per chart review, pt is NPO for PEG placement later today. Pt was scheduled for MBSS this afternoon. GUARD CHIEF spoke to attending MD. MBSS canceled. Exam can be rescheduled if/when deemed appropriate by MD. Name: Los Acuña Date of : 1935 Age: 84 Date of Registration: 06/07/20 Speech Language Pathology Order Status:
--- NOTE | 2020-06-10 11:21 | MHC.CLN ---
RE: CONSULT RECOMMEND TF AT MAX GOAL RATE OSMOLITE 1.5 AT 50CC/HR CONTINUOUS WITH 240CC FREE WATER BOLUS Q 4 HRS PROVIDES 1800KCALS (27KCALS/KG), 75G PROTEIN (1.1G/KG), 2354CC TOTAL FREE WATER FROM FORMULA AND FLUSH (36CC/KG) IF BOLUS NEEDED; RECOMMEND OSMOLITE 1.5 X5 CARTONS PER DAY WITH 240CC FREE WATER FLUSH Q 4 HRS PROVIDES SAME NUTRITION NOTED ABOVE MONITOR TOLERANCE, RESIDUALS AND LYTES
--- NOTE | 2020-06-10 12:49 | P.PNIM_ITS ---
Subjective Subjective Date of Service: 06/10/20 Interval History: f/u aspiration pneumonia no sob this am, on room air No overnight events Review of Systems Review of Systems: Yes all other systems are reviewed and are negative Constitutional Constitutional: Denies chills and Denies fever(s) Cardiovascular Cardiovascular: Denies chest pain Respiratory Respiratory: Denies cough Gastrointestinal Gastrointestinal: Denies abdominal pain Physical Exam Vital Signs: Vital Signs: Last Vital Signs Temp 98.1 F 06/10/20 11:27 Pulse 72 06/10/20 11:27 Resp 19 06/10/20 11:27 BP 146/84 H 06/10/20 11:27 Pulse Ox 99 06/10/20 11:27 Body Mass Index 23.3 Const: General: alert and awake Nutritional Appearance: thin HENMT: Head: Yes normocephalic and Yes atraumatic Eyes: Sclerae: sclerae normal Chest: Chest palpation & inspection: normal inspection of the chest Resp: Effort & Inspection: normal respiratory effort and no respiratory distress Cardio: Rate: regular rate Rhythm: regular rhythm GI: Palpation (GI): Soft to palpation and nontender Skin: General skin exam: no rashes or lesions noted Extrem: General: Yes normal to inspection Objective Data Current Medications Generic Name Dose Route Start Last Admin Trade Name Freq PRN Reason Stop Dose Admin Acetaminophen 650 mg 06/07/20 03:11 Acetaminophen 325 Mg Tablet PO Q6H PRN Pain, Mild (Pain Scale 1-3) Aspirin 81 mg 06/08/20 09:00 06/10/20 08:20 Aspirin 81 Mg Tab.Chew PO Not Given DAILY KEL Carbidopa/Levodopa 2 tab 06/07/20 03:11 06/10/20 08:28 Carbidopa/Levodopa 25/100 Tablet PO Not Given QID KEL Cyanocobalamin 1,000 mcg 06/07/20 09:00 06/10/20 08:21 Cyanocobalamin (Vitamin B-12) 1,000 Mcg Tablet PO Not Given DAILY KEL Docusate Sodium 100 mg 06/08/20 09:00 06/10/20 08:28 Docusate Sodium 100 Mg/10 Ml Liquid PO Not Given BID KEL Docusate Sodium 100 mg 06/08/20 08:37 Docusate Sodium 100 Mg/10 Ml Liquid PO DAILY PRN Constipation Gabapentin 100 mg 06/07/20 09:00 06/10/20 08:28 Gabapentin 100 Mg Capsule PO Not Given TID [facility] Heparin Sodium (Porcine) 5,000 unit 06/07/20 06:00 06/10/20 04:25 Heparin Sodium,Porcine 5,000 Unit/Ml Vial SUBCUT 5,000 unit Q12H KEL Administration Ampicillin Sodium/Sulbactam 100 mls @ 200 mls/hr 06/07/20 04:00 06/10/20 12:01 Sodium 1.5 gm/ Sodium Chloride IV 100 mls/hr Q8H KEL Administration Dextrose/Sodium Chloride 1,000 mls @ 80 mls/hr 06/09/20 08:00 06/10/20 08:24 D5ns IVCONT 80 mls/hr .[id number] KEL Administration Levothyroxine Sodium 112 mcg 06/07/20 06:00 06/10/20 04:25 Levothyroxine Sodium 112 Mcg Tablet PO Not Given DAILY@0600 [facility] Melatonin 6 mg 06/07/20 03:11 06/08/20 21:19 Melatonin 3 Mg Tablet PO 6 mg BEDTIME PRN Administration Insomnia Patient Own 9.5 each 06/08/20 21:00 06/09/20 20:58 Medication ( TRANSDERMA 9.5 each Rivastigmine 9.5 Mg/ BEDTIME KEL Administration 24h Patch) Ondansetron HCl 4 mg 06/07/20 03:11 Ondansetron Hcl 4 Mg/2 Ml Vial IVPUSH Q8H PRN Nausea and Vomiting Pravastatin Sodium 20 mg 06/07/20 09:00 06/10/20 08:28 Pravastatin Sodium 20 Mg Tablet PO Not Given DAILY [facility] Sodium Chloride 3 ml 06/07/20 03:11 06/10/20 08:20 0.9 % Sodium Chloride Flush 3 Ml Syringe IVFLUSH Not Given QSHIFT [facility] Vitamin D 50 mcg 06/07/20 09:00 06/10/20 08:20 Cholecalciferol (Vitamin D3) 25 Mcg Tablet PO Not Given DAILY [facility] Labs CBC & Chem 7: 06/10/20 06:04 06/10/20 06:04 Microbiology Microbiology Results: Microbiology 06/06/20 14:51 Blood - Venous Blood Culture - Preliminary No growth after 48 hours. 06/06/20 14:50 Blood - Venous Blood Culture - Preliminary No growth after 48 hours. Assessment and Plan (1) Aspiration pneumonia: Status: Acute (2) Dysphagia: Status: Acute Assessment and Plan: This is a 84-year-old male with past medical history of Parkinson's disease who presents to the hospital after experiencing a fall admitted with Concern for aspiration pneumonia. # Aspiration pneumonia secondary to dysphagia. Patient and family are opting to have a PEG tube placed due to frequent aspiration. - Surgery following, plan for PEG tube today 06/10 - Continue Unasyn Day #4 - follow cultures # Dysphagia - in setting of Parkinson's disease - speech therapy rec Keeping NPO as he is now having trouble even with thin and thickened liquids. - PEG tube placement planned for today, see dietary recommendations from Nutrition note for feedings # Hypoxic respiratory failure. Secondary to aspiration pneumonia. Resolved. - currently on room air - COVID-19 PCR negative - continue Unasyn day 4 # Frequent falls - possibly secondary progression of his Parkinson's disease and autonomic dysfunction - Physical therapy rec [facility] and will need services at home once discharged from [facility] - orthostatic vitals were negative # Parkinson's disease - continue Sinemet, rivastigmine # hypothyroidism - continue levothyroxine Dispo: [employer] [place] ? tomorrow; pending peg tube placement and initiation of tube feeding DVT ppx -heparin Attending. Dr. Ho
--- NOTE | 2020-06-10 12:49 | MHC.SHP ---
Pre-Procedural Eval Section B Chief Complaint: Recurrent falls, aspiration PNA Allergies: Allergies Allergy/AdvReac Type Severity Reaction Status Date / Time No Known Allergies Allergy Verified 06/06/20 13:17 Plan I have reviewed the history and physical and performed a pertinent physical examination on my patient. No changes have occurred unless specified. I have discussed procedure again just now with son David at [phone]; I went over with him the planned procedure as well as the risks, benefits and alternatives. He says he didnot have any further questions.
--- NOTE | 2020-06-10 13:34 | P.OP_ITS ---
Operative Note Operative Note Date of Service: 06/10/20 Narrative: Preop diagnosis: Dysphagia, recurrent aspiration Postop diagnosis: Dysphagia, recurrent aspiration Procedure done: Percutaneous endoscopic gastrostomy tube placement Surgeon: Jerry Davenport MD Secondary Education Professor: EMILY Mckay The patient is an 84-year-old male with worsening Parkinson's disease, admitted for pneumonia secondary to aspiration. He has had recurrent aspiration due to dysphagia from his progressive Parkinson's disease and has been referred to me for PEG tube placement. I had multiple discussions with his son David about the technique of the procedure and I reviewed with him the risks, benefits, and alternatives. The son had given consent on behalf of the patient. That patient was brought to the operating room and placed supine on the bed under monitored anesthesia care. A surgical time-out was done. A bite block was in position. The patient received cefazolin 2 g IV prophylactically. I proceeded to insert the gastroscope through the bite block into the oropharynx. The vocal cords were visualized. The esophageal slit was seen posterior to this. The esophageal slit was intubated and the gastroscope was gently advanced through the entire length of the esophagus stomach. The stomach was insufflated to distended this.Transillumination on the abdominal wall was easily seen in the epigastric area below the subcostal margin. Pressure on this area using a finger finger also showed indentation on the anterior stomach wall seen with the scope. I therefore chose this area of the skin as the PEG site. This area was prepped and draped. This area was infiltrated with lidocaine 1%. We then inserted a large-bore needle with a plastic cannula she through a small stab incision. The needle was removed. The inner cannula was seen with the scope in the stomach lumen. A guidewire was placed through the cannula into the stomach lumen and this was dressed with a snare. This guidewire was then pulled out gently all the way out through the oral cavity. This guidewire was looped into the feeding tube. We then pulled the guidewire from the abdominal wall, dragging the feeding tube with this into the esophagus all the way to the stomach until we felt resistance. The external bolster was position to make this snug on the skin. I reinserted the gastroscope all the way to the stomach. We were able to visualize the internal mushroom bolster and this was noted to be in good position on the anterior stomach wall. Photographic documentation was done. We then proceeded to withdraw the scope completely. Examination of the stomach with the scope earlier did not reveal any other pathology. The procedure was then completed. The patient tolerated procedure well. There was no blood loss. The patient was then transferred to the recovery room with stable vital signs.
--- NOTE | 2020-06-10 13:37 | P.BOP_ITS ---
Brief Operative Note Date of Service: 06/10/20 <STERLING Gil Last Filed: 06/10/20 13:38> Pre-op diagnosis: dysphagia, recurrent aspiration <STERLING Gil Last Filed: 06/10/20 13:38> Post-op diagnosis: same <STERLING Gil Last Filed: 06/10/20 13:38> Procedure: percutaneous endoscopic gastrostomy tube placement <STERLING Gil Last Filed: 06/10/20 13:38> Implants: PEG TUBE 20F <STERLING Gil Last Filed: 06/10/20 13:38> Surgeon: TAN ARMENDARIZ MD <STERLING Gil Last Filed: 06/10/20 13:38> Anesthesia: MAC <STERLING Gil Last Filed: 06/10/20 13:38> Medical Dermatologist: Richa Mckay <STERLING Gil Last Filed: 06/10/20 13:38> Estimated blood loss (mL): 1 <STERLING Gil Last Filed: 06/10/20 13:38> Pathology: none sent <STERLING Gil Last Filed: 06/10/20 13:38> Condition: stable <STERLING Gil Last Filed: 06/10/20 13:38> Disposition: PACU <STERLING Gil Last Filed: 06/10/20 13:38>
--- NOTE | 2020-06-10 13:47 | P.CONAN_ITS ---
[facility] Active Problems Active Problems: All Active Problems (Updated 06/06/20 @ 19:13 by Vy warner NP) Aspiration pneumonia (Acute) Hypoxia (Acute) Fall (Acute) Epistaxis (Acute) Dysphagia (Acute) Past Medical History Medical History Dysphagia Epistaxis Falls Cuellar catheter problem High cholesterol Hypothyroid Parkinsons Surgical History Surgical History History of appendectomy (~1942) Social History Social History Household Members: None Housing: Assisted Living Facility Alcohol intake: never Smoking Status: Never smoker service: Yes Current occupational status: retired [employer] Allergies Allergy/AdvReac Type Severity Reaction Status Date / Time No Known Allergies Allergy Verified 06/06/20 13:17 Active Medications: Current Medications Generic Name Dose Route Start Last Admin Trade Name Freq PRN Reason Stop Dose Admin Acetaminophen 650 mg 06/07/20 03:11 Acetaminophen 325 Mg Tablet PO Q6H PRN Pain, Mild (Pain Scale 1-3) Aspirin 81 mg 06/08/20 09:00 06/10/20 08:20 Aspirin 81 Mg Tab.Chew PO Not Given DAILY KEL Carbidopa/Levodopa 2 tab 06/07/20 03:11 06/10/20 13:07 Carbidopa/Levodopa 25/100 Tablet PO Not Given QID KEL Cyanocobalamin 1,000 mcg 06/07/20 09:00 06/10/20 08:21 Cyanocobalamin (Vitamin B-12) 1,000 Mcg Tablet PO Not Given DAILY KEL Docusate Sodium 100 mg 06/08/20 09:00 06/10/20 08:28 Docusate Sodium 100 Mg/10 Ml Liquid PO Not Given BID KEL Docusate Sodium 100 mg 06/08/20 08:37 Docusate Sodium 100 Mg/10 Ml Liquid PO DAILY PRN Constipation Gabapentin 100 mg 06/07/20 09:00 06/10/20 08:28 Gabapentin 100 Mg Capsule PO Not Given TID KEL Heparin Sodium (Porcine) 5,000 unit 06/07/20 06:00 06/10/20 04:25 Heparin Sodium,Porcine 5,000 Unit/Ml Vial SUBCUT 5,000 unit Q12H [facility] Administration Ampicillin Sodium/Sulbactam 100 mls @ 200 mls/hr 06/07/20 04:00 06/10/20 13:07 Sodium 1.5 gm/ Sodium Chloride IV Infused Q8H KEL Infusion Dextrose/Sodium Chloride 1,000 mls @ 80 mls/hr 06/09/20 08:00 06/10/20 08:24 D5ns IVCONT 80 mls/hr .[id number] KEL Administration Levothyroxine Sodium 112 mcg 06/07/20 06:00 06/10/20 04:25 Levothyroxine Sodium 112 Mcg Tablet PO Not Given DAILY@0600 KEL Melatonin 6 mg 06/07/20 03:11 06/08/20 21:19 Melatonin 3 Mg Tablet PO 6 mg BEDTIME PRN Administration Insomnia Patient Own 9.5 each 06/08/20 21:00 06/09/20 20:58 Medication ( TRANSDERMA 9.5 each Rivastigmine 9.5 Mg/ BEDTIME KEL Administration 24h Patch) Ondansetron HCl 4 mg 06/07/20 03:11 Ondansetron Hcl 4 Mg/2 Ml Vial IVPUSH Q8H PRN Nausea and Vomiting Pravastatin Sodium 20 mg 06/07/20 09:00 06/10/20 08:28 Pravastatin Sodium 20 Mg Tablet PO Not Given DAILY [facility] Sodium Chloride 3 ml 06/07/20 03:11 06/10/20 08:20 0.9 % Sodium Chloride Flush 3 Ml Syringe IVFLUSH Not Given QSHIFT [facility] Vitamin D 50 mcg 06/07/20 09:00 06/10/20 08:20 Cholecalciferol (Vitamin D3) 25 Mcg Tablet PO Not Given DAILY [facility] Home Medications Medication Instructions Recorded Confirmed Last Taken Type aspirin [Aspir-81] 81 mg PO DAILY 06/06/20 06/06/20 06/06/20 History carbidopa-levodopa [Sinemet] 2 tab PO QID 06/06/20 06/06/20 Unknown History cholecalciferol (vitamin D3) 2,000 mcg PO DAILY 06/06/20 06/06/20 06/06/20 History [Vitamin D3] cyanocobalamin (vitamin B-12) 1,000 mcg PO DAILY 06/06/20 06/06/20 Unknown History docusate sodium [Colace] 100 mg PO BID 06/06/20 06/06/20 06/06/20 History food supplemt, lactose-reduced See Rx Instructions .ROUTE .COMPLEX 06/06/20 06/06/20 06/06/20 History [Ensure] gabapentin 100 mg PO TID 06/06/20 06/06/20 06/06/20 08:00 History ibuprofen 800 mg PO TID PRN 06/06/20 06/06/20 Unknown History levothyroxine 112 mcg PO DAILY 06/06/20 06/06/20 Unknown History melatonin 5 mg PO BEDTIME PRN 06/06/20 06/06/20 Unknown History pravastatin [Pravachol] 20 mg PO DAILY 06/06/20 06/06/20 Unknown History rivastigmine 9.5 mg TRANSDERMAL DAILY PRN 06/06/20 06/06/20 Unknown History senna 10 ml PO BEDTIME PRN 06/06/20 06/06/20 Unknown History Exam Exam Date and Time: June 10, 2020 1347 Height,Weight and Vital Signs: Height 5 ft 6 in Weight 65.771 kg Last Vital Signs Temp 99.5 F 06/10/20 13:05 Pulse 66 06/10/20 13:05 Resp 18 06/10/20 13:05 BP 152/80 H 06/10/20 13:05 Pulse Ox 100 06/10/20 13:05 Pertinent Lab Results Pertinent Lab Results: Laboratory Tests 06/06/20 06/06/20 06/06/20 14:50 14:50 14:50 WBC 16.3 H RBC 3.72 L Hgb 12.4 L Hct 37.2 L MCV 100.0 H MCH 33.3 H MCHC 33.3 RDW 13.0 Plt Count 404 H MPV 9.9 Immature Gran % (Auto) 0.4 Neut % (Auto) 91.5 H Lymph % (Auto) 5.0 L [place] % (Auto) 2.8 Eos % (Auto) 0.1 Baso % (Auto) 0.2 Lymph # (Auto) 0.8 L [place] # (Auto) 0.5 Eos # (Auto) 0.0 Baso # (Auto) 0.0 Abs Immat Gran (auto) 0.07 H Absolute Neuts (auto) 14.9 H Absolute Nucleated RBC 0.000 Nucleated RBC % (auto) 0.0 PT 12.7 INR 1.1 APTT 39.0 H Sodium 137 Potassium 4.3 Chloride 102 Carbon Dioxide 25 Anion Gap 14 BUN 24 H Creatinine 1.12 Estim Creat Clear Calc 44.3 Estimated GFR > 60 Random Glucose 95 Lactic Acid Calcium 9.1 Magnesium 2.1 Total Bilirubin 0.8 Direct Bilirubin 0.3 AST 13 ALT < 6 Alkaline Phosphatase 95 Total Creatine Kinase Troponin I High Sens B-Natriuretic Peptide Total Protein 6.3 L Albumin 3.9 Procalcitonin Urine Color Urine Appearance Urine pH Ur Specific Mcgrann Urine Protein Urine Glucose (UA) Urine Ketones Urine Blood Urine Nitrite Ur Leukocyte Esterase COVID-19 ([facility]) COVID-19 Cnekt Com 06/06/20 06/06/20 06/06/20 14:50 14:50 14:50 WBC RBC Hgb Hct MCV MCH MCHC RDW Plt Count MPV Immature Gran % (Auto) Neut % (Auto) Lymph % (Auto) [place] % (Auto) Eos % (Auto) Baso % (Auto) Lymph # (Auto) [place] # (Auto) Eos # (Auto) Baso # (Auto) Abs Immat Gran (auto) Absolute Neuts (auto) Absolute Nucleated RBC Nucleated RBC % (auto) PT INR APTT Sodium Potassium Chloride Carbon Dioxide Anion Gap BUN Creatinine Estim Creat Clear Calc Estimated GFR Random Glucose Lactic Acid Calcium Magnesium Total Bilirubin Direct Bilirubin AST ALT Alkaline Phosphatase Total Creatine Kinase 82 Troponin I High Sens 40.5 H B-Natriuretic Peptide 87 Total Protein Albumin Procalcitonin Urine Color Urine Appearance Urine pH Ur Specific Mcgrann Urine Protein Urine Glucose (UA) Urine Ketones Urine Blood Urine Nitrite Ur Leukocyte Esterase COVID-19 ([facility]) Negative COVID-19 MyClean See Note 06/06/20 06/06/20 06/06/20 14:50 14:51 18:20 WBC RBC Hgb Hct MCV MCH MCHC RDW Plt Count MPV Immature Gran % (Auto) Neut % (Auto) Lymph % (Auto) [place] % (Auto) Eos % (Auto) Baso % (Auto) Lymph # (Auto) [place] # (Auto) Eos # (Auto) Baso # (Auto) Abs Immat Gran (auto) Absolute Neuts (auto) Absolute Nucleated RBC Nucleated RBC % (auto) PT INR APTT Sodium Potassium Chloride Carbon Dioxide Anion Gap BUN Creatinine Estim Creat Clear Calc Estimated GFR Random Glucose Lactic Acid 1.6 Calcium Magnesium Total Bilirubin Direct Bilirubin AST ALT Alkaline Phosphatase Total Creatine Kinase Troponin I High Sens 36.8 H B-Natriuretic Peptide Total Protein Albumin Procalcitonin 0.39 Urine Color Urine Appearance Urine pH Ur Specific Mcgrann Urine Protein Urine Glucose (UA) Urine Ketones Urine Blood Urine Nitrite Ur Leukocyte Esterase COVID-19 ([facility]) COVID-19 Clin Com 06/07/20 06/07/20 06/07/20 03:35 08:48 08:48 WBC 9.3 RBC 3.40 L Hgb 11.2 L Hct 34.1 L MCV 100.3 H MCH 32.9 MCHC 32.8 RDW 12.8 Plt Count 365 MPV 10.3 Immature Gran % (Auto) 0.8 H Neut % (Auto) 80.6 H Lymph % (Auto) 12.0 L [place] % (Auto) 5.4 Eos % (Auto) 0.8 Baso % (Auto) 0.4 Lymph # (Auto) 1.1 L [place] # (Auto) 0.5 Eos # (Auto) 0.1 Baso # (Auto) 0.0 Abs Immat Gran (auto) 0.07 H Absolute Neuts (auto) 7.5 Absolute Nucleated RBC 0.000 Nucleated RBC % (auto) 0.0 PT INR APTT Sodium 139 Potassium 4.3 Chloride 105 Carbon Dioxide 28 Anion Gap 10 L BUN 25 H Creatinine 0.88 Estim Creat Clear Calc 56.3 Estimated GFR > 60 Random Glucose 92 Lactic Acid Calcium 8.6 Magnesium Total Bilirubin Direct Bilirubin AST ALT Alkaline Phosphatase Total Creatine Kinase Troponin I High Sens B-Natriuretic Peptide Total Protein Albumin Procalcitonin Urine Color HOWIE Urine Appearance HAZY Urine pH 5.0 Ur Specific Mcgrann >= 1.030 H Urine Protein TRACE Urine Glucose (UA) NEG Urine Ketones 5 Urine Blood NEG Urine Nitrite NEG Ur Leukocyte Esterase NEG COVID-19 ([facility]) COVID-19 Clin Com 06/09/20 06/09/20 06/09/20 05:35 05:35 05:35 WBC 6.7 RBC 3.39 L Hgb 11.1 L Hct 34.4 L MCV 101.5 H MCH 32.7 MCHC 32.3 RDW 13.2 Plt Count 335 MPV 10.3 Immature Gran % (Auto) 0.5 H Neut % (Auto) 68.4 Lymph % (Auto) 22.6 [place] % (Auto) 6.8 Eos % (Auto) 1.4 Baso % (Auto) 0.3 Lymph # (Auto) 1.5 [place] # (Auto) 0.5 Eos # (Auto) 0.1 Baso # (Auto) 0.0 Abs Immat Gran (auto) 0.03 Absolute Neuts (auto) 4.6 Absolute Nucleated RBC 0.000 Nucleated RBC % (auto) 0.0 PT 12.3 INR 1.0 APTT Sodium 138 Potassium 4.4 Chloride 104 Carbon Dioxide 26 Anion Gap 12 BUN 25 H Creatinine 0.77 Estim Creat Clear Calc 64.4 Estimated GFR > 60 Random Glucose 91 Lactic Acid Calcium 8.7 Magnesium Total Bilirubin Direct Bilirubin AST ALT Alkaline Phosphatase Total Creatine Kinase Troponin I High Sens B-Natriuretic Peptide Total Protein Albumin Procalcitonin Urine Color Urine Appearance Urine pH Ur Specific Mcgrann Urine Protein Urine Glucose (UA) Urine Ketones Urine Blood Urine Nitrite Ur Leukocyte Esterase COVID-19 ([facility]) COVID-19 Clin Com 06/10/20 06/10/20 06:04 06:04 WBC 6.7 RBC 3.15 L Hgb 10.5 L Hct 31.7 L MCV 100.6 H MCH 33.3 H MCHC 33.1 RDW 13.1 Plt Count 302 MPV 10.5 Immature Gran % (Auto) 0.8 H Neut % (Auto) 71.5 Lymph % (Auto) 20.6 [place] % (Auto) 5.7 Eos % (Auto) 1.1 Baso % (Auto) 0.3 Lymph # (Auto) 1.4 [place] # (Auto) 0.4 Eos # (Auto) 0.1 Baso # (Auto) 0.0 Abs Immat Gran (auto) 0.05 H Absolute Neuts (auto) 4.8 Absolute Nucleated RBC 0.000 Nucleated RBC % (auto) 0.0 PT INR APTT Sodium 139 Potassium 3.9 Chloride 106 Carbon Dioxide 23 Anion Gap 14 BUN 18 H Creatinine 0.70 Estim Creat Clear Calc 70.8 Estimated GFR > 60 Random Glucose 99 Lactic Acid Calcium 8.0 L D Magnesium Total Bilirubin Direct Bilirubin AST ALT Alkaline Phosphatase Total Creatine Kinase Troponin I High Sens B-Natriuretic Peptide Total Protein Albumin Procalcitonin Urine Color Urine Appearance Urine pH Ur Specific Mcgrann Urine Protein Urine Glucose (UA) Urine Ketones Urine Blood Urine Nitrite Ur Leukocyte Esterase COVID-19 ([facility]) COVID-19 Clin Com Airway Mallampati Class: II TM Dist: >3cm Loose/Missing/Broken Teeth: Yes Heart: Junctional Rhythm Assessment and Plan Assessment Anesthesia Assessment: Anesthesia Plan Discussed and Chart Reviewed Final Anesthetic Review NPO: Yes ASA Class: III Final Preanesthetic Review: No Changes in Pt Med Stat, Meds/Allgs Chart Reviewed, Consent Obtained/Reviewed and Anes Risks/Benef Reviewed Patient Risk: High Procedure Risk: Low Anesthetic Plan Anesthetic Plan: MAC: Disposition: Standard PACU
--- NOTE | 2020-06-10 16:15 | PM.EVENT ---
Event Note Date of Service: 06/10/20 Event Note: Underwent uneventful PEG tube placement earlier Seems to have good pain control Stable vital signs Abdomen soft Peg tube in place Keep external bolster snug on the abdominal wall Okay to start feeds tomorrow Son updated by phone
[2020-06-10] MEDS: 0.9 % Sodium Chloride Flush 3 ML SYRINGE IVFLUSH ×2 (16:30→21:23)
[2020-06-10] MEDS: Gabapentin 100 MG CAPSULE PO (20:58)
[2020-06-10] MEDS: Carbidopa/Levodopa 25/100 TABLET 2 TAB PO (20:58)
[2020-06-10] MEDS: Docusate Sodium 100 MG/10 ML LIQUID PO (20:59)
[2020-06-10] MEDS: Acetaminophen 325 MG TABLET 650 MG PO (20:59)
[2020-06-11] MEDS: Ampicillin Sodium/Sulbactam Na 1.5 GM in 0.9 % Sodium Chloride 100 ML IV ×3 (02:06→20:27)
[2020-06-11] MEDS: oxyCODONE HCl Immed Release 5 MG TABLET PO (02:06)
[2020-06-11 03:28] VITALS: BP 143/75; PULSE 54; RESP 18; TEMP 36.6; O2SAT 99
[2020-06-11] MEDS: Levothyroxine Sodium 112 MCG TABLET PO (05:48)
[2020-06-11] MEDS: Heparin Sodium,Porcine 5,000 UNIT/ML VIAL 5000 UNIT SUBCUT ×2 (05:48→16:52)
--- NOTE | 2020-06-11 07:45 | PM.PNGS ---
Subjective Subjective Date of Service: 06/11/20 <Richa Mckay PA-C - Last Filed: 06/11/20 07:48> 06/11/20 <Jerry Davenport MD - Last Filed: 06/11/20 08:57> Interval history: Having some pain at PEG site, awaiting pain meds. <Richa Mcaky PA-C - Last Filed: 06/11/20 07:48> Physical Exam Vital Signs: Vital Signs: Last Vital Signs Temp 97.8 F 06/11/20 03:28 Pulse 54 06/11/20 03:28 Resp 18 06/11/20 03:28 BP 143/75 H 06/11/20 03:28 Pulse Ox 99 06/11/20 03:28 Body Mass Index 23.3 <STERLING Gil Last Filed: 06/11/20 07:48> Const: General: no acute distress <Richa Mckay PA-C - Last Filed: 06/11/20 07:48> Nutritional Appearance: cachectic <Richa Mckay PA-C - Last Filed: 06/11/20 07:48> Resp: Effort & Inspection: normal respiratory effort <Richa Mckay PA-C - Last Filed: 06/11/20 07:48> GI: Inspection: No distended and Yes G-tube present (PEG tube intact, bolster snug at skin) <Richa Mckay PA-C - Last Filed: 06/11/20 07:48> Palpation (GI): Soft to palpation, Tenderness to palpation present (GI) (mild, surrounding PEG), no guarding and not rigid <Richa Mckay PA-C - Last Filed: 06/11/20 07:48> Percussion: Yes normal to percussion <STERLING Gil Last Filed: 06/11/20 07:48> Skin: Other: warm and dry <STERLING Gil Last Filed: 06/11/20 07:48> Extrem: General: Yes no clubbing, cyanosis or edema <STERLING Gil Last Filed: 06/11/20 07:48> Progress Note: A&P Assessment and plan (1) Aspiration pneumonia: Status: Acute <Richa Mckay PA-C - Last Filed: 06/11/20 07:48> (2) Dysphagia: Status: Acute <Richa Mckay PA-C - Last Filed: 06/11/20 07:48> (3) S/P percutaneous endoscopic gastrostomy (PEG) tube placement: Status: Acute <Richa Mckay PA-C - Last Filed: 06/11/20 07:48> Assessment and Plan: Doing well post op. PEG tube remains in place, site clean, bolster snug at skin. Can begin tube feedings today as tolerated. Pain control as needed. <Richa Mckay PA-C - Last Filed: 06/11/20 07:48> looks comfortable abd soft, no guarding PEG in place, site dry ok to start feeds today pain mgt seen and examined - agree with EMILY Mckay <Jerry Davenport MD - Last Filed: 06/11/20 08:57> Fall Risk Details Current Medications: Current Medications Generic Name Dose Route Start Last Admin Trade Name Freq PRN Reason Stop Dose Admin Acetaminophen 650 mg 06/07/20 03:11 06/10/20 20:59 Acetaminophen 325 Mg Tablet PO 650 mg Q6H PRN Administration Pain, Mild (Pain Scale 1-3) Aspirin 81 mg 06/08/20 09:00 06/10/20 08:20 Aspirin 81 Mg Tab.Chew PO Not Given DAILY KEL Carbidopa/Levodopa 2 tab 06/07/20 03:11 06/10/20 20:58 Carbidopa/Levodopa 25/100 Tablet PO 2 tab QID KEL Administration Cyanocobalamin 1,000 mcg 06/07/20 09:00 06/10/20 08:21 Cyanocobalamin (Vitamin B-12) 1,000 Mcg Tablet PO Not Given DAILY KEL Docusate Sodium 100 mg 06/08/20 09:00 06/10/20 20:59 Docusate Sodium 100 Mg/10 Ml Liquid PO 100 mg BID KEL Administration Docusate Sodium 100 mg 06/08/20 08:37 Docusate Sodium 100 Mg/10 Ml Liquid PO DAILY PRN Constipation Gabapentin 100 mg 06/07/20 09:00 06/10/20 20:58 Gabapentin 100 Mg Capsule PO 100 mg TID KEL Administration Heparin Sodium (Porcine) 5,000 unit 06/07/20 06:00 06/11/20 05:48 Heparin Sodium,Porcine 5,000 Unit/Ml Vial SUBCUT 5,000 unit Q12H KEL Administration Ampicillin Sodium/Sulbactam 100 mls @ 200 mls/hr 06/07/20 04:00 06/11/20 03:14 Sodium 1.5 gm/ Sodium Chloride IV Infused Q8H KEL Infusion Dextrose/Sodium Chloride 1,000 mls @ 80 mls/hr 06/09/20 08:00 06/10/20 20:55 D5ns IVCONT 80 mls/hr .[id number] KEL Administration Levothyroxine Sodium 112 mcg 06/07/20 06:00 06/11/20 05:48 Levothyroxine Sodium 112 Mcg Tablet PO 112 mcg DAILY@0600 KEL Administration Melatonin 6 mg 06/07/20 03:11 06/08/20 21:19 Melatonin 3 Mg Tablet PO 6 mg BEDTIME PRN Administration Insomnia Morphine Sulfate 2 mg 06/10/20 15:17 Morphine Sulfate 2 Mg/Ml Cartridge IVPUSH Q4H PRN Pain, Severe (Pain Scale 7-10) Patient Own 9.5 each 06/08/20 21:00 06/10/20 21:09 Medication ( TRANSDERMA 9.5 each Rivastigmine 9.5 Mg/ BEDTIME KEL Administration 24h Patch) Ondansetron HCl 4 mg 06/07/20 03:11 Ondansetron Hcl 4 Mg/2 Ml Vial IVPUSH Q8H PRN Nausea and Vomiting Oxycodone HCl 5 mg 06/10/20 15:17 06/11/20 02:06 Oxycodone Hcl Immed Release 5 Mg Tablet PO 5 mg Q4H PRN Administration Pain, Moderate (Pain Scale 4-6 Pravastatin Sodium 20 mg 06/07/20 09:00 06/10/20 08:28 Pravastatin Sodium 20 Mg Tablet PO Not Given DAILY KEL Sodium Chloride 3 ml 06/07/20 03:11 06/10/20 21:23 0.9 % Sodium Chloride Flush 3 Ml Syringe IVFLUSH 3 ml QSHIFT KEL Administration Vitamin D 50 mcg 06/07/20 09:00 06/10/20 08:20 Cholecalciferol (Vitamin D3) 25 Mcg Tablet PO Not Given DAILY KEL <Richa Mckay PA-C - Last Filed: 06/11/20 07:48> Time Spent With Patient Time: Total time spent is greater than 50% in coordination of care (as documented) at patient's floor/unit and/or counseling patient: <Richa Mckay PA-C - Last Filed: 06/11/20 07:48> Time with patient: less than 15 minutes <Richa Mckay PA-C - Last Filed: 06/11/20 07:48>
[2020-06-11 07:50] VITALS: BP 149/73; PULSE 55; RESP 17; TEMP 36.6; O2SAT 99
[2020-06-11] MEDS: Cholecalciferol (Vitamin D3) 25 MCG TABLET 50 MCG PO (08:07)
[2020-06-11] MEDS: Gabapentin 100 MG CAPSULE PO ×3 (08:09→20:28)
[2020-06-11] MEDS: Pravastatin Sodium 20 MG TABLET PO (08:10)
[2020-06-11] MEDS: Aspirin 81 MG TAB.CHEW PO (08:10)
[2020-06-11] MEDS: Cyanocobalamin (Vitamin B-12) 1,000 MCG TABLET 1000 MCG PO (08:10)
[2020-06-11] MEDS: Carbidopa/Levodopa 25/100 TABLET 2 TAB PO ×4 (08:11→20:28)
[2020-06-11] MEDS: Docusate Sodium 100 MG/10 ML LIQUID PO ×2 (08:14→20:28)
[2020-06-11] MEDS: Acetaminophen 325 MG TABLET 650 MG PO ×2 (08:22→14:47)
[2020-06-11] MEDS: Dextrose 5 % and 0.9 % NaCl 1,000 ML 80 ML IVCONT (09:39)
--- NOTE | 2020-06-11 09:39 | HO.POSTANES ---
Post Anesthesia Evaluation Post Anesthesia Evaluation Vital Signs: Vital Signs Temp Pulse Resp BP Pulse Ox 06/11/20 07:50 97.8 F 55 17 149/73 H 99 06/11/20 03:28 97.8 F 54 18 143/75 H 99 06/10/20 23:50 97.1 F 54 18 116/70 96 Anesthesia: Monitored Mental Status: Awake Pain Control: Satisfactory Nausea/Vomiting: None Hydration: Adequate Anesthesia-Related Issues: No Anes. Related Issues
--- NOTE | 2020-06-11 10:13 | MHC.SLORD ---
[employer] spoke with pt, MD, and RN this morning regarding dysphagia therapy and recommendation for MBSS. Pt underwent PEG placement yesterday and will begin tube feeds today. Per MD, pt is too lethargic for PO at this time. MD would like pt to acclimate to tube feedings, then will reconsider MBSS. Dysphagia therapy is no longer warranted at this level of care. If pt's condition changes, please re-refer. Pt may benefit from a repeat MBSS in the outpatient setting when less lethargic. Name: Los Acuña Date of : 1935 Age: 84 Date of Registration: 06/07/20 Speech Language Pathology Order Status:
[2020-06-11 12:00] VITALS: BP 191/84; PULSE 54; RESP 18; TEMP 36.4; O2SAT 99
--- NOTE | 2020-06-11 13:09 | HO.PM.IMPN ---
Subjective Subjective Date of Service: 06/11/20 Interval History: f/u aspiration pneumonia, dysphagia s/p PEG 06/10 no sob this am, on room air No overnight events Constitutional Constitutional: Denies chills and Denies fever(s) Cardiovascular Cardiovascular: Denies chest pain Respiratory Respiratory: Denies cough Gastrointestinal Gastrointestinal: Denies abdominal pain Physical Exam Vital Signs: Vital Signs: Last Vital Signs Temp 97.6 F 06/11/20 12:00 Pulse 54 06/11/20 12:00 Resp 18 06/11/20 12:00 BP 191/84 H 06/11/20 12:00 Pulse Ox 99 06/11/20 12:00 Body Mass Index 23.3 Const: General: alert and awake Nutritional Appearance: thin HENMT: Head: Yes normocephalic and Yes atraumatic Eyes: Sclerae: sclerae normal Chest: Chest palpation & inspection: normal inspection of the chest Resp: Effort & Inspection: normal respiratory effort and no respiratory distress Cardio: Rate: regular rate Rhythm: regular rhythm GI: Palpation (GI): Soft to palpation and nontender Skin: General skin exam: no rashes or lesions noted Extrem: General: Yes normal to inspection Objective Data Current Medications Generic Name Dose Route Start Last Admin Trade Name Freq PRN Reason Stop Dose Admin Acetaminophen 650 mg 06/07/20 03:11 06/11/20 08:22 Acetaminophen 325 Mg Tablet PO 650 mg Q6H PRN Administration Pain, Mild (Pain Scale 1-3) Aspirin 81 mg 06/08/20 09:00 06/11/20 08:10 Aspirin 81 Mg Tab.Chew PO 81 mg DAILY KEL Administration Carbidopa/Levodopa 2 tab 06/07/20 03:11 06/11/20 12:35 Carbidopa/Levodopa 25/100 Tablet PO 2 tab QID KEL Administration Cyanocobalamin 1,000 mcg 06/07/20 09:00 06/11/20 08:10 Cyanocobalamin (Vitamin B-12) 1,000 Mcg Tablet PO 1,000 mcg DAILY KEL Administration Docusate Sodium 100 mg 06/08/20 09:00 06/11/20 08:14 Docusate Sodium 100 Mg/10 Ml Liquid PO 100 mg BID KEL Administration Docusate Sodium 100 mg 06/08/20 08:37 Docusate Sodium 100 Mg/10 Ml Liquid PO DAILY PRN Constipation Gabapentin 100 mg 06/07/20 09:00 06/11/20 08:09 Gabapentin 100 Mg Capsule PO 100 mg TID KEL Administration Heparin Sodium (Porcine) 5,000 unit 06/07/20 06:00 06/11/20 05:48 Heparin Sodium,Porcine 5,000 Unit/Ml Vial SUBCUT 5,000 unit Q12H KEL Administration Ampicillin Sodium/Sulbactam 100 mls @ 200 mls/hr 06/07/20 04:00 06/11/20 12:38 Sodium 1.5 gm/ Sodium Chloride IV 200 mls/hr Q8H KEL Administration Levothyroxine Sodium 112 mcg 06/07/20 06:00 06/11/20 05:48 Levothyroxine Sodium 112 Mcg Tablet PO 112 mcg DAILY@0600 KEL Administration Melatonin 6 mg 06/07/20 03:11 06/08/20 21:19 Melatonin 3 Mg Tablet PO 6 mg BEDTIME PRN Administration Insomnia Morphine Sulfate 2 mg 06/10/20 15:17 Morphine Sulfate 2 Mg/Ml Cartridge IVPUSH Q4H PRN Pain, Severe (Pain Scale 7-10) Patient Own 9.5 each 06/08/20 21:00 06/10/20 21:09 Medication ( TRANSDERMA 9.5 each Rivastigmine 9.5 Mg/ BEDTIME KEL Administration 24h Patch) Ondansetron HCl 4 mg 06/07/20 03:11 Ondansetron Hcl 4 Mg/2 Ml Vial IVPUSH Q8H PRN Nausea and Vomiting Oxycodone HCl 5 mg 06/10/20 15:17 06/11/20 02:06 Oxycodone Hcl Immed Release 5 Mg Tablet PO 5 mg Q4H PRN Administration Pain, Moderate (Pain Scale 4-6 Pravastatin Sodium 20 mg 06/07/20 09:00 06/11/20 08:10 Pravastatin Sodium 20 Mg Tablet PO 20 mg DAILY KEL Administration Sodium Chloride 3 ml 06/07/20 03:11 06/11/20 08:13 0.9 % Sodium Chloride Flush 3 Ml Syringe IVFLUSH Not Given QSHIFT [facility] Vitamin D 50 mcg 06/07/20 09:00 06/11/20 08:07 Cholecalciferol (Vitamin D3) 25 Mcg Tablet PO 50 mcg DAILY KEL Administration Labs CBC & Chem 7: 06/10/20 06:04 06/10/20 06:04 Microbiology Microbiology Results: Microbiology 06/06/20 14:51 Blood - Venous Blood Culture - Preliminary No growth after 48 hours. 06/06/20 14:50 Blood - Venous Blood Culture - Preliminary No growth after 48 hours. Assessment and Plan (1) Aspiration pneumonia: Status: Acute (2) Dysphagia: Status: Acute Assessment and Plan: This is a 84-year-old male with past medical history of Parkinson's disease who presents to the hospital after experiencing a fall admitted with Concern for aspiration pneumonia. # Aspiration pneumonia secondary to dysphagia. - s/p PEG tube 06/[address] Davenport - Continue Unasyn Day #07/28 - blood cultures negative # Dysphagia in setting of Parkinson's disease - NPO. Can have outpatient modified barium swallow in a few weeks after patient recovers from hospitalization to re-evaluate. - s/p PEG tube placement - start tube feedings today # Hypoxic respiratory failure. Secondary to aspiration pneumonia. Resolved. # Frequent falls - possibly secondary progression of his Parkinson's disease and autonomic dysfunction - Physical therapy rec STR # Parkinson's disease - continue Sinemet, rivastigmine # hypothyroidism - continue levothyroxine # HLD -continue statin Dispo: To [place] when at goal tube feeds DVT ppx -heparin Attending. Dr. Ho
[2020-06-11] MEDS: 0.9 % Sodium Chloride Flush 3 ML SYRINGE IVFLUSH (14:51)
[2020-06-11 15:27] VITALS: BP 126/59; PULSE 44; RESP 18; TEMP 36.3; O2SAT 98
[2020-06-11 19:08] VITALS: BP 102/61; PULSE 51; RESP 18; TEMP 36.8; O2SAT 97
[2020-06-11 23:37] VITALS: BP 132/71; PULSE 50; RESP 16; TEMP 36.6; O2SAT 97
[2020-06-12] MEDS: 0.9 % Sodium Chloride Flush 3 ML SYRINGE IVFLUSH ×4 (00:27→20:21)
[2020-06-12 03:09] VITALS: BP 152/65; PULSE 54; RESP 16; TEMP 37; O2SAT 97
[2020-06-12] MEDS: Levothyroxine Sodium 112 MCG TABLET PO (05:00)
[2020-06-12] MEDS: Heparin Sodium,Porcine 5,000 UNIT/ML VIAL 5000 UNIT SUBCUT ×2 (05:00→18:32)
[2020-06-12 08:00] VITALS: BP 149/89; PULSE 72; RESP 18; TEMP 36.4; O2SAT 96
[2020-06-12] MEDS: Docusate Sodium 100 MG/10 ML LIQUID PO (09:13)
[2020-06-12] MEDS: Aspirin 81 MG TAB.CHEW PO (09:13)
[2020-06-12] MEDS: Cyanocobalamin (Vitamin B-12) 1,000 MCG TABLET 1000 MCG PO (09:13)
[2020-06-12] MEDS: Carbidopa/Levodopa 25/100 TABLET 2 TAB PO ×4 (09:13→20:14)
[2020-06-12] MEDS: Pravastatin Sodium 20 MG TABLET PO (09:13)
[2020-06-12] MEDS: Cholecalciferol (Vitamin D3) 25 MCG TABLET 50 MCG PO (09:13)
[2020-06-12] MEDS: Gabapentin 100 MG CAPSULE PO ×3 (09:13→20:14)
--- NOTE | 2020-06-12 11:12 | HO.PM.IMPN ---
Subjective Subjective Date of Service: 06/12/20 Interval History: rectal pain Cardiovascular Cardiovascular: Reports no additional cardiovascular complaints Genitourinary Genitourinary: Reports no additional male genitourinary complaints Physical Exam Vital Signs: Vital Signs: Last Vital Signs Temp 97.6 F 06/12/20 08:00 Pulse 72 06/12/20 08:00 Resp 18 06/12/20 08:00 BP 149/89 H 06/12/20 08:00 Pulse Ox 96 06/12/20 08:00 Body Mass Index 23.3 General: lethargic X 3, ill appearing Resp: rhonchi CVS: S1,S2,RRR GI: soft, non tender, non distended, g tube in place Neuro: motor grossly weak Psych: appropriate affect Objective Data Current Medications Generic Name Dose Route Start Last Admin Trade Name Freq PRN Reason Stop Dose Admin Acetaminophen 650 mg 06/07/20 03:11 06/11/20 14:47 Acetaminophen 325 Mg Tablet PO 650 mg Q6H PRN Administration Pain, Mild (Pain Scale 1-3) Aspirin 81 mg 06/08/20 09:00 06/12/20 09:13 Aspirin 81 Mg Tab.Chew PO 81 mg DAILY KEL Administration Carbidopa/Levodopa 2 tab 06/07/20 03:11 06/12/20 09:13 Carbidopa/Levodopa 25/100 Tablet PO 2 tab QID KEL Administration Cyanocobalamin 1,000 mcg 06/07/20 09:00 06/12/20 09:13 Cyanocobalamin (Vitamin B-12) 1,000 Mcg Tablet PO 1,000 mcg DAILY KEL Administration Docusate Sodium 100 mg 06/08/20 09:00 06/12/20 09:13 Docusate Sodium 100 Mg/10 Ml Liquid PO 100 mg BID KEL Administration Docusate Sodium 100 mg 06/08/20 08:37 Docusate Sodium 100 Mg/10 Ml Liquid PO DAILY PRN Constipation Gabapentin 100 mg 06/07/20 09:00 06/12/20 09:13 Gabapentin 100 Mg Capsule PO 100 mg TID KEL Administration Heparin Sodium (Porcine) 5,000 unit 06/07/20 06:00 06/12/20 05:00 Heparin Sodium,Porcine 5,000 Unit/Ml Vial SUBCUT 5,000 unit Q12H KEL Administration Levothyroxine Sodium 112 mcg 06/07/20 06:00 06/12/20 05:00 Levothyroxine Sodium 112 Mcg Tablet PO 112 mcg DAILY@0600 KEL Administration Melatonin 6 mg 06/07/20 03:11 06/08/20 21:19 Melatonin 3 Mg Tablet PO 6 mg BEDTIME PRN Administration Insomnia Morphine Sulfate 2 mg 06/10/20 15:17 Morphine Sulfate 2 Mg/Ml Cartridge IVPUSH Q4H PRN Pain, Severe (Pain Scale 7-10) Patient Own 9.5 each 06/08/20 21:00 06/11/20 20:28 Medication ( TRANSDERMA 9.5 each Rivastigmine 9.5 Mg/ BEDTIME KEL Administration 24h Patch) Ondansetron HCl 4 mg 06/07/20 03:11 Ondansetron Hcl 4 Mg/2 Ml Vial IVPUSH Q8H PRN Nausea and Vomiting Oxycodone HCl 5 mg 06/10/20 15:17 06/11/20 02:06 Oxycodone Hcl Immed Release 5 Mg Tablet PO 5 mg Q4H PRN Administration Pain, Moderate (Pain Scale 4-6 Pravastatin Sodium 20 mg 06/07/20 09:00 06/12/20 09:13 Pravastatin Sodium 20 Mg Tablet PO 20 mg DAILY KEL Administration Sodium Chloride 3 ml 06/07/20 03:11 06/12/20 09:12 0.9 % Sodium Chloride Flush 3 Ml Syringe IVFLUSH 3 ml QSHIFT KEL Administration Vitamin D 50 mcg 06/07/20 09:00 06/12/20 09:13 Cholecalciferol (Vitamin D3) 25 Mcg Tablet PO 50 mcg DAILY KEL Administration Labs CBC & Chem 7: 06/10/20 06:04 06/10/20 06:04 Microbiology Microbiology Results: Microbiology 06/06/20 14:51 Blood - Venous Blood Culture - Final No growth after 5 days. 06/06/20 14:50 Blood - Venous Blood Culture - Final No growth after 5 days. Assessment and Plan (1) Aspiration pneumonia: Status: Acute (2) Dysphagia: Status: Acute Assessment and Plan: This is a 84-year-old male with past medical history of Parkinson's disease who presents to the hospital after experiencing a fall admitted with Concern for aspiration pneumonia. Aspiration pneumonia secondary to dysphagia. complicated by acute hypoxic respiratory failure - s/p PEG tube 06/[address] Davenport copmleted unasyn course - blood cultures negative hypoxia resolved continue tube feeds, monitor for tolerance prior to discharge Frequent falls - possibly secondary progression of his Parkinson's disease and autonomic dysfunction - Physical therapy rec STR Parkinson's disease continue Sinemet, rivastigmine hypothyroidism continue levothyroxine HLD continue statin Dispo: To [facility] when at goal tube feeds
[2020-06-12 12:00] VITALS: BP 160/77; PULSE 71; RESP 18; TEMP 36.8; O2SAT 95
[2020-06-12 15:08] VITALS: BP 119/60; PULSE 69; RESP 20; TEMP 36.7; O2SAT 96
--- NOTE | 2020-06-12 18:12 | PC.NURSE ---
Addendum entered by Xiao Ruvalcaba 06/12/20 18:41: Pt OOB to recliner, family member at bedside Original Note: Patient asleep for most of the day. OsMolite 1.5 at max of 50 mL/hour; tolerating well, no s/s of aspiration. Aspirated no more then 20 mL from PEG tube. Patient NPO, medications given through PEG tube. Patient c/o rectal pain, patient had small, soft BM; once cleaned, patient reported feeling better. No further issues, complaints.
[2020-06-12 20:00] VITALS: BP 132/62; PULSE 60; RESP 18; TEMP 36.4; O2SAT 96
[2020-06-12 23:07] VITALS: BP 99/55; PULSE 83; RESP 20; TEMP 36.3; O2SAT 95
[2020-06-13 04:00] VITALS: BP 138/70; PULSE 57; RESP 18; TEMP 36.7; O2SAT 97
[2020-06-13 05:52] LABS: MANUAL DIFF FLAG NO
[2020-06-13 05:58] LABS: Basophils Percent Auto 0.2 % (0-2); Eosinophils Absolute Auto 0.1 X10*3/uL (0.0-0.4); Eosinophils Percent Auto 0.6 % (0-4); Hematocrit 34.6 % (42-52); Hemoglobin 11.6 g/dl (14.0-18.0); Imm Gran Abs Auto 0.04 X10*3/uL (0.00-0.03); Imm Gran Pct Auto 0.3 % (0.0-0.4); Lymphocytes Absolute Auto 1.2 X10*3/uL (1.2-4.9); Lymphocytes Percent Auto 10.5 % (20-40); Mean Corpuscular HGB Conc 33.5 g/dl (31.0-36.0); Mean Corpuscular Hemoglobin 33.3 pg (27.0-33.0); Mean Corpuscular Volume 99.4 fL (80-98); Mean Platelet Volume 10.6 fL (9.4-12.4); Monocytes Absolute Auto 0.7 X10*3/uL (0.1-1.2); Monocytes Percent Auto 5.7 % (2-11); Neutrophils Absolute Auto 9.5 X10*3/uL (2.0-8.3); Neutrophils Percent Auto 82.7 % (45-73); Platelet Count 218 X10*3/uL (160-400); Red Blood Count 3.48 X10*6/uL (4.60-5.80); Red Cell Distribution Width 13.1 % (11.0-16.0); White Blood Count 11.5 X10*3/uL (4.8-10.8)
[2020-06-13] MEDS: Heparin Sodium,Porcine 5,000 UNIT/ML VIAL 5000 UNIT SUBCUT ×2 (06:03→17:01)
[2020-06-13] MEDS: Levothyroxine Sodium 112 MCG TABLET PO (06:04)
[2020-06-13 06:30] LABS: Anion Gap 11 (12-20); Blood Urea Nitrogen 16 mg/dL (9-16); Calcium 8.4 mg/dL (8.4-10.2); Carbon Dioxide 27 mmol/L (22-29); Chloride 101 mmol/L (96-108); Estimated Glomerular Filt Rate > 60; Glucose Fasting 100 mg/dL (60-99); Potassium 4.3 mmol/L (3.3-5.1); Sodium 135 mmol/L (135-145)
[2020-06-13 07:54] VITALS: BP 142/69; PULSE 61; RESP 18; TEMP 36.4; O2SAT 95
[2020-06-13] MEDS: Gabapentin 100 MG CAPSULE PO ×3 (08:18→21:36)
[2020-06-13] MEDS: Carbidopa/Levodopa 25/100 TABLET 2 TAB PO ×4 (08:18→21:36)
[2020-06-13] MEDS: 0.9 % Sodium Chloride Flush 3 ML SYRINGE IVFLUSH ×3 (08:18→21:47)
[2020-06-13] MEDS: Aspirin 81 MG TAB.CHEW PO (08:18)
[2020-06-13] MEDS: Cholecalciferol (Vitamin D3) 25 MCG TABLET 50 MCG PO (08:18)
[2020-06-13] MEDS: Pravastatin Sodium 20 MG TABLET PO (08:18)
[2020-06-13] MEDS: Cyanocobalamin (Vitamin B-12) 1,000 MCG TABLET 1000 MCG PO (08:18)
[2020-06-13] MEDS: Docusate Sodium 100 MG/10 ML LIQUID PO ×2 (08:19→21:36)
--- NOTE | 2020-06-13 10:52 | HO.PM.IMPN ---
Subjective Subjective Date of Service: 06/13/20 Interval History: weak Cardiovascular Cardiovascular: Reports no additional cardiovascular complaints Respiratory Respiratory: Reports no additional respiratory complaints Physical Exam Vital Signs: Vital Signs: Last Vital Signs Temp 97.6 F 06/13/20 07:54 Pulse 61 06/13/20 07:54 Resp 18 06/13/20 07:54 BP 142/69 H 06/13/20 07:54 Pulse Ox 95 06/13/20 07:54 Body Mass Index 23.3 General: lethargic X 3, ill appearing Resp: rhonchi CVS: S1,S2,RRR GI: soft, non tender, non distended, g tube in place Neuro: motor grossly weak Psych: appropriate affect Objective Data Current Medications Generic Name Dose Route Start Last Admin Trade Name Freq PRN Reason Stop Dose Admin Acetaminophen 650 mg 06/07/20 03:11 06/11/20 14:47 Acetaminophen 325 Mg Tablet PO 650 mg Q6H PRN Administration Pain, Mild (Pain Scale 1-3) Aspirin 81 mg 06/08/20 09:00 06/13/20 08:18 Aspirin 81 Mg Tab.Chew PO 81 mg DAILY KEL Administration Carbidopa/Levodopa 2 tab 06/07/20 03:11 06/13/20 08:18 Carbidopa/Levodopa 25/100 Tablet PO 2 tab QID KEL Administration Cyanocobalamin 1,000 mcg 06/07/20 09:00 06/13/20 08:18 Cyanocobalamin (Vitamin B-12) 1,000 Mcg Tablet PO 1,000 mcg DAILY KEL Administration Docusate Sodium 100 mg 06/08/20 09:00 06/13/20 08:19 Docusate Sodium 100 Mg/10 Ml Liquid PO 100 mg BID KEL Administration Docusate Sodium 100 mg 06/08/20 08:37 Docusate Sodium 100 Mg/10 Ml Liquid PO DAILY PRN Constipation Gabapentin 100 mg 06/07/20 09:00 06/13/20 08:18 Gabapentin 100 Mg Capsule PO 100 mg TID KEL Administration Heparin Sodium (Porcine) 5,000 unit 06/07/20 06:00 06/13/20 06:03 Heparin Sodium,Porcine 5,000 Unit/Ml Vial SUBCUT 5,000 unit Q12H KEL Administration Levothyroxine Sodium 112 mcg 06/07/20 06:00 06/13/20 06:04 Levothyroxine Sodium 112 Mcg Tablet PO 112 mcg DAILY@0600 KEL Administration Melatonin 6 mg 06/07/20 03:11 06/08/20 21:19 Melatonin 3 Mg Tablet PO 6 mg BEDTIME PRN Administration Insomnia Morphine Sulfate 2 mg 06/10/20 15:17 Morphine Sulfate 2 Mg/Ml Cartridge IVPUSH Q4H PRN Pain, Severe (Pain Scale 7-10) Patient Own 9.5 each 06/08/20 21:00 06/12/20 20:13 Medication ( TRANSDERMA 9.5 each Rivastigmine 9.5 Mg/ BEDTIME KEL Administration 24h Patch) Ondansetron HCl 4 mg 06/07/20 03:11 Ondansetron Hcl 4 Mg/2 Ml Vial IVPUSH Q8H PRN Nausea and Vomiting Oxycodone HCl 5 mg 06/10/20 15:17 06/11/20 02:06 Oxycodone Hcl Immed Release 5 Mg Tablet PO 5 mg Q4H PRN Administration Pain, Moderate (Pain Scale 4-6 Pravastatin Sodium 20 mg 06/07/20 09:00 06/13/20 08:18 Pravastatin Sodium 20 Mg Tablet PO 20 mg DAILY KEL Administration Sodium Chloride 3 ml 06/07/20 03:11 06/13/20 08:18 0.9 % Sodium Chloride Flush 3 Ml Syringe IVFLUSH 3 ml QSHIFT KEL Administration Vitamin D 50 mcg 06/07/20 09:00 06/13/20 08:18 Cholecalciferol (Vitamin D3) 25 Mcg Tablet PO 50 mcg DAILY KEL Administration Labs CBC & Chem 7: 06/13/20 05:36 06/13/20 05:36 Microbiology Microbiology Results: Microbiology 06/06/20 14:51 Blood - Venous Blood Culture - Final No growth after 5 days. 06/06/20 14:50 Blood - Venous Blood Culture - Final No growth after 5 days. Assessment and Plan (1) Aspiration pneumonia: Status: Acute (2) Dysphagia: Status: Acute Assessment and Plan: This is a 84-year-old male with past medical history of Parkinson's disease who presents to the hospital after experiencing a fall admitted with Concern for aspiration pneumonia. Aspiration pneumonia secondary to dysphagia. complicated by acute hypoxic respiratory failure - s/p PEG tube 06/[address] Davenport copmleted unasyn course - blood cultures negative hypoxia resolved continue tube feeds, monitor for tolerance prior to discharge, plan for snf tomorrow Frequent falls - possibly secondary progression of his Parkinson's disease and autonomic dysfunction - Physical therapy rec STR Parkinson's disease continue Sinemet, rivastigmine hypothyroidism continue levothyroxine HLD continue statin Dispo: To [facility] when at goal tube feeds
[2020-06-13 11:54] VITALS: BP 129/59; PULSE 50; RESP 18; TEMP 36.6; O2SAT 98
[2020-06-13 15:40] VITALS: BP 114/54; PULSE 56; RESP 17; TEMP 36.8; O2SAT 95
[2020-06-13 19:23] VITALS: BP 114/55; PULSE 54; RESP 17; TEMP 36.9; O2SAT 96
[2020-06-13 23:22] VITALS: BP 106/57; PULSE 51; RESP 18; TEMP 36.6; O2SAT 94
[2020-06-14 03:40] VITALS: BP 123/63; PULSE 54; RESP 18; TEMP 36.8; O2SAT 98
[2020-06-14] MEDS: Heparin Sodium,Porcine 5,000 UNIT/ML VIAL 5000 UNIT SUBCUT (05:22)
[2020-06-14] MEDS: Levothyroxine Sodium 112 MCG TABLET PO (05:23)
[2020-06-14 08:00] VITALS: BP 154/72; PULSE 55; RESP 18; TEMP 36.9; O2SAT 98
--- NOTE | 2020-06-14 09:17 | P.PNIM_ITS ---
Subjective Subjective Date of Service: 06/14/20 Interval History: tired Cardiovascular Cardiovascular: Reports no additional cardiovascular complaints Gastrointestinal Gastrointestinal: Reports no additional gastrointestinal complaints Physical Exam Vital Signs: Vital Signs: Last Vital Signs Temp 98.4 F 06/14/20 08:00 Pulse 55 06/14/20 08:00 Resp 18 06/14/20 08:00 BP 154/72 H 06/14/20 08:00 Pulse Ox 98 06/14/20 08:00 Body Mass Index 23.3 General: lethargic X 3, ill appearing Resp: rhonchi CVS: S1,S2,RRR GI: soft, non tender, non distended, g tube in place Neuro: motor grossly weak Psych: appropriate affect Objective Data Current Medications Generic Name Dose Route Start Last Admin Trade Name Freq PRN Reason Stop Dose Admin Acetaminophen 650 mg 06/07/20 03:11 06/11/20 14:47 Acetaminophen 325 Mg Tablet PO 650 mg Q6H PRN Administration Pain, Mild (Pain Scale 1-3) Aspirin 81 mg 06/08/20 09:00 06/13/20 08:18 Aspirin 81 Mg Tab.Chew PO 81 mg DAILY KEL Administration Carbidopa/Levodopa 2 tab 06/07/20 03:11 06/13/20 21:36 Carbidopa/Levodopa 25/100 Tablet PO 2 tab QID KEL Administration Cyanocobalamin 1,000 mcg 06/07/20 09:00 06/13/20 08:18 Cyanocobalamin (Vitamin B-12) 1,000 Mcg Tablet PO 1,000 mcg DAILY KEL Administration Docusate Sodium 100 mg 06/08/20 09:00 06/13/20 21:36 Docusate Sodium 100 Mg/10 Ml Liquid PO 100 mg BID KEL Administration Docusate Sodium 100 mg 06/08/20 08:37 Docusate Sodium 100 Mg/10 Ml Liquid PO DAILY PRN Constipation Heparin Sodium (Porcine) 5,000 unit 06/07/20 06:00 06/14/20 05:22 Heparin Sodium,Porcine 5,000 Unit/Ml Vial SUBCUT 5,000 unit Q12H KEL Administration Levothyroxine Sodium 112 mcg 06/07/20 06:00 06/14/20 05:23 Levothyroxine Sodium 112 Mcg Tablet PO 112 mcg DAILY@0600 KEL Administration Melatonin 6 mg 06/07/20 03:11 06/08/20 21:19 Melatonin 3 Mg Tablet PO 6 mg BEDTIME PRN Administration Insomnia Morphine Sulfate 2 mg 06/10/20 15:17 Morphine Sulfate 2 Mg/Ml Cartridge IVPUSH Q4H PRN Pain, Severe (Pain Scale 7-10) Patient Own 9.5 each 06/08/20 21:00 06/13/20 21:36 Medication ( TRANSDERMA 9.5 each Rivastigmine 9.5 Mg/ BEDTIME KEL Administration 24h Patch) Ondansetron HCl 4 mg 06/07/20 03:11 Ondansetron Hcl 4 Mg/2 Ml Vial IVPUSH Q8H PRN Nausea and Vomiting Oxycodone HCl 5 mg 06/10/20 15:17 06/11/20 02:06 Oxycodone Hcl Immed Release 5 Mg Tablet PO 5 mg Q4H PRN Administration Pain, Moderate (Pain Scale 4-6 Pravastatin Sodium 20 mg 06/07/20 09:00 06/13/20 08:18 Pravastatin Sodium 20 Mg Tablet PO 20 mg DAILY KEL Administration Sodium Chloride 3 ml 06/07/20 03:11 06/13/20 21:47 0.9 % Sodium Chloride Flush 3 Ml Syringe IVFLUSH 3 ml QSHIFT KEL Administration Vitamin D 50 mcg 06/07/20 09:00 06/13/20 08:18 Cholecalciferol (Vitamin D3) 25 Mcg Tablet PO 50 mcg DAILY KEL Administration Labs CBC & Chem 7: 06/13/20 05:36 06/13/20 05:36 Microbiology Microbiology Results: Microbiology 06/06/20 14:51 Blood - Venous Blood Culture - Final No growth after 5 days. 06/06/20 14:50 Blood - Venous Blood Culture - Final No growth after 5 days. Assessment and Plan (1) Aspiration pneumonia: Status: Acute (2) Dysphagia: Status: Acute Assessment and Plan: This is a 84-year-old male with past medical history of Parkinson's disease who presents to the hospital after experiencing a fall admitted with Concern for aspiration pneumonia. Aspiration pneumonia secondary to dysphagia. complicated by acute hypoxic respiratory failure - s/p PEG tube 06/[address] Davenport copmleted unasyn course - blood cultures negative hypoxia resolved continue tube feeds, monitor for tolerance prior to discharge, plan for snf today d/w son, aware of aspiration risk, but given his father's expressed wishes previously would like to have some form of comfort feeds, will start pureed secondary diet can titrate to patient's comfort. Frequent falls - possibly secondary progression of his Parkinson's disease and autonomic dysfunction - Physical therapy rec STR Parkinson's disease continue Sinemet, rivastigmine hypothyroidism continue levothyroxine HLD continue statin Dispo: To [facility] when available
[2020-06-14] MEDS: Docusate Sodium 100 MG/10 ML LIQUID PO (09:25)
[2020-06-14] MEDS: Cyanocobalamin (Vitamin B-12) 1,000 MCG TABLET 1000 MCG PO (09:25)
[2020-06-14] MEDS: Pravastatin Sodium 20 MG TABLET PO (09:25)
[2020-06-14] MEDS: Cholecalciferol (Vitamin D3) 25 MCG TABLET 50 MCG PO (09:25)
[2020-06-14] MEDS: Carbidopa/Levodopa 25/100 TABLET 2 TAB PO ×3 (09:25→16:43)
[2020-06-14] MEDS: Acetaminophen 325 MG TABLET 650 MG PO (09:25)
[2020-06-14] MEDS: Aspirin 81 MG TAB.CHEW PO (09:25)
[2020-06-14] MEDS: 0.9 % Sodium Chloride Flush 3 ML SYRINGE IVFLUSH (09:26)
--- NOTE | 2020-06-14 11:47 | MHC.CLN ---
F/U PT RECEIVING TF AT MAX GOAL RATE OSMOLITE 1.5 AT 50CC/HR CONTINUOUS WITH 240CC FREE WATER BOLUS Q 4 HRS PROVIDES 1800KCALS (27KCALS/KG), 75G PROTEIN (1.1G/KG), 2354CC TOTAL FREE WATER FROM FORMULA AND FLUSH (36CC/KG) IF BOLUS NEEDED; RECOMMEND OSMOLITE 1.5 X5 CARTONS PER DAY WITH 240CC FREE WATER FLUSH Q 4 HRS PROVIDES SAME NUTRITION NOTED ABOVE MONITOR TOLERANCE, RESIDUALS AND LYTES
[2020-06-14 11:48] VITALS: BMI 23.3
[2020-06-14 12:00] VITALS: BP 136/64; PULSE 53; RESP 20; TEMP 36.7; O2SAT 99
--- NOTE | 2020-06-14 13:02 | P.DS_ITS ---
DS: Providers Provider Date of Service: 06/14/20 Date of admission: 06/07/20 02:51 Primary care physician: FERNANDO CHAND Consults: 06/08/20 13:33 Consult to General Surgery Routine Consulting Provider: Jerry Davenport Reason for consultation: PEG TUBE Has provider been notified: No DS: Diagnosis Discharge Diagnosis (1) Aspiration pneumonia: Status: Acute (2) Dysphagia: Status: Acute (3) S/P percutaneous endoscopic gastrostomy (PEG) tube placement: Status: Acute (4) Parkinsons: Status: Acute (5) Acute respiratory failure with hypoxia: Status: Acute DS: Medications Discharge Medications Home Medications: Home Medications Medication Instructions Recorded Confirmed aspirin 81 mg PO DAILY 06/06/20 06/06/20 carbidopa-levodopa [Sinemet] 2 tab PO QID 06/06/20 06/06/20 cholecalciferol (vitamin D3) 2,000 mcg PO DAILY 06/06/20 06/06/20 [Vitamin D3] cyanocobalamin (vitamin B-12) 1,000 mcg PO DAILY 06/06/20 06/06/20 docusate sodium [Colace] 100 mg PO BID 06/06/20 06/06/20 levothyroxine 112 mcg PO DAILY 06/06/20 06/06/20 melatonin 5 mg PO BEDTIME PRN 06/06/20 06/06/20 pravastatin [Pravachol] 20 mg PO DAILY 06/06/20 06/06/20 rivastigmine 9.5 mg TRANSDERMAL DAILY PRN 06/06/20 06/06/20 senna 10 ml PO BEDTIME PRN 06/06/20 06/06/20 DS: Summary Hospital Course Hospital Course: Patient was admitted for acute hypoxic respiratory failure secondary to aspiration pneumonia. He completed course of 5 days of Unasyn, hypoxia resolved. Patient was evaluated for dysphagia and determined to have dysphagia to all consistencies of food and liquid. This was discussed with patient and his son and decision was made to have PEG tube placed. This was completed on 06/10/2020. Patient was started on Osmolite and tolerated feeds well. Patient and son did express some desire for comfort feeds despite risk of aspiration. This is reasonable and as long as risks are appreciated can be left up to the discretion of the patient. Patient was evaluated physical therapy for his frequent falls and will be discharged to senior living facility for short-term rehab. Time Spent with Patient Time attestation: Total time spent providing and/or coordinating discharge services: Discharge coordination time: Greater than 30 minutes Physical Exam Vital Signs: Vital Signs: Last Vital Signs Temp 98.1 F 06/14/20 12:00 Pulse 53 06/14/20 12:00 Resp 20 06/14/20 12:00 BP 136/64 06/14/20 12:00 Pulse Ox 99 06/14/20 12:00 Body Mass Index 23.3 General: lethargic X 3, ill appearing Resp: rhonchi CVS: S1,S2,RRR GI: soft, non tender, non distended, g tube in place Neuro: motor grossly weak Psych: appropriate affect Discharge Plan Discharge Patient Disposition: er SNF Referrals: FERNANDO CHAND [Primary Care Provider] - Discharge Medications: Continued docusate sodium [Colace] 100 mg Capsule 100 mg PO BID RF: 0 cyanocobalamin (vitamin B-12) 1,000 mcg Tablet 1,000 mcg PO DAILY RF: 0 aspirin 81 mg Tablet,Delayed Release (Dr/Ec) 81 mg PO DAILY RF: 0 pravastatin [Pravachol] 20 mg Tablet 20 mg PO DAILY RF: 0 carbidopa-levodopa [Sinemet] 25-100 mg Tablet 2 tab PO QID RF: 0 levothyroxine 112 mcg Tablet 112 mcg PO DAILY RF: 0 senna 176 mg/5 mL Syrup 10 ml PO BEDTIME PRN (Reason: Pain, Mild) RF: 0 rivastigmine 9.5 mg/24 hour Patch 24 Hour 9.5 mg TRANSDERMAL DAILY PRN (Reason: Pain, Mild) RF: 0 melatonin 5 mg Tablet 5 mg PO BEDTIME PRN (Reason: Pain, Mild) RF: 0 cholecalciferol (vitamin D3) [Vitamin D3] 50 mcg (2,000 unit) Capsule 2,000 mcg PO DAILY RF: 0 Discontinued ibuprofen 100 mg/5 mL Suspension 800 mg PO TID PRN (Reason: Pain) RF: 0 gabapentin 250 mg/5 mL Solution 100 mg PO TID RF: 0 Ensure Liquid See Rx Instructions .ROUTE .COMPLEX RF: 0 Discharge Orders: Discharge Order (Routine); Ordered 06/14/20 Ordered By: Deny Saini Diet: other Activity on Discharge: As tolerated Stand Alone Forms: Patient Portal Discharge page Care Plan Goals: avoid aspiration Health Concerns: parkinsons, dysphagia Plan of Treatment: osmolite 1.5 at 50ml/hr for 24hrs a day, flush with 240cc of water every 4 hrs. check residual every 8 hrs and hold for 2hrs if greater than 250cc. continue comfort feeds if desired, family and patient aware of risk of aspiration
[2020-06-14 14:27] LABS: COVID-19 Test Negative (Negative)
[2020-06-14 15:22] VITALS: BP 123/64; PULSE 52; RESP 18; TEMP 36.6; O2SAT 99
--- NOTE | 2020-06-14 15:53 | MHC.CM.PN ---
Patient has been medically cleared for dc to SNF/STR today. Patient will dc to the 1st choice SNF- [facility] today bat 5:30 PM, via [facility] ([facility] was not able to accommodate the trip). IMM addressed/Patient/Son/HCP/David @ [phone] are aware of and in agreement with the dc plan.
== END 2020-06-14 17:54 | disposition skilled nursing facility (03) | DRG 177 ==
LOC: HO.ED 19:13 → HO.EDOVER 06-07 02:58 → HO.IMC 06-07 06:57
PROVIDERS: Nurse Practitioner Acute Care; Physician Assistant; Surgery; Admitting Provider Internal Medicine; Emergency Provider Emergency Medicine; PCP Emergency Medicine; Visit Provider Internal Medicine
PROC: 0DH63UZ Insertion of Feeding Device into Stomach, Percutaneous Approach (ICD-10-PCS; CPT 43246; principal; 2020-06-10 13:00)
DX: J69.0 Pneumonitis due to inhalation of food and vomit (principal); J96.01 Acute respiratory failure with hypoxia; E46 Unspecified protein-calorie malnutrition; G20 Parkinson's disease; R13.10 Dysphagia, unspecified; E03.9 Hypothyroidism, unspecified; F02.80 Dementia in other diseases classified elsewhere, unspecified severity, without behavioral disturbance, psychotic disturbance, mood disturbance, and anxiety; R29.6 Repeated falls; Z91.81 History of falling; Z20.822 Contact with and (suspected) exposure to COVID-19; Z79.82 Long term (current) use of aspirin; Z79.890 Hormone replacement therapy; Z79.899 Other long term (current) drug therapy; Z66 Do not resuscitate; Z68.23 Body mass index [BMI] 23.0-23.9, adult
CPT/HCPCS: 36415; 70450; 70486; 71045; 72125; 73502; 80048; 80076; 81003; 82550; 83605; 83735; 83880; 84145; 84484; 85025; 85610; 85730; 87040; 87635; 92610; 93005; 96365; 97110; 97116; 97162; 97530; 99285; 99291; J0295; J0690; J2543; J3010

== ENCOUNTER 2020-07-21 14:18 | Outpatient (REF) | payer MEDICARE, SELFPAY ==
--- NOTE | ~2020-07-21 | FL_ITS ---
EXAMINATION: XR BARIUM SWALLOW CLINICAL INFORMATION: Dysphagia. COMPARISON: None TECHNIQUE: The patient was given varying consistencies of barium meal to evaluate swallowing by speech pathology. FINDINGS: The patient penetrated with honey thin barium consistency meal. The patient exhibited aspiration with a thin consistency of barium. A delayed oral phase of swallowing with visible throughout the study. There is pooling of contrast within the vallecula and piriform sinuses as well. 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 FLUOROSCOPY TIME: 3 minutes DOSE AREA PRODUCT: 1.6 uGy-m2 (microgray-meter squared) FL/FL barium swallow modified IMPRESSION: Penetration of honey thin barium consistency meal and aspiration with thin barium consistency fluid. Delayed oral phase of swallowing throughout the exam and pooling of contrast within the vallecula and piriform sinuses.
--- NOTE | 2020-07-22 17:28 | MHC.SL.IMP ---
Date of Plan of Treatment: 07/21/20 Onset of Symptoms/Illness: 07/21/20 Date Treatment Started: 07/21/20 Admitting Diagnosis: Parkinson's Disease Primary Speech & Language Diagnosis: R13.12 Oropharyngeal Phase Dysphagia Secondary Speech & Language Diagnosis: R41.841 Cognitive communication disorder Reason for Today's Visit: 00605 Modified Barium Swallow Study Comments: Patient has history of aspiration. Pre-evaluation Dietary Consistencies: NPO Pre-evaluation Liquid Consistency: NPO Pre-evaluation Medication Administration: NPO Medical History: Comments: Modified Barium Swallow Study Fluoroscopic Evaluation of Swallowing Function CPT Code 58405 Evaluation Year: 2020 Reason for Study: History of aspiration Referring Physician: Joyce Pearl M.D. Evaluating Clinician: Romy Lomax M.A. [facility]-DENTAL LABORATORY TECHNOLOGY TEACHER Study Number: 1 Patient Name: Los Acuña Status: Outpatient, Wheelchair Age: 84 Gender: Male MEDICAL HISTORY: Primary (admitting) Diagnosis: Parkinson's Disease Year of Onset or Diagnosis: 2020 Comorbidities: Dementia Rhabdomyolysis Past Medical History: Recurrent nose bleeds Multiple rib fractures [place] Aspiration pneumonia Current (pre-evaluation) Intake/Diet: Route: NPO/Alternate Route, gastrostomy tube Pain: None reported at time of study SUBJECTIVE: Patient is an 84 year old male who was accompanied to this evaluation by his son, Mr. David Acuña, who assisted in providing relevant background information included in this report. Patient has Parkinson?s Disease and comes from a senior living facility, [facility]. He ambulates in a wheelchair. Patient was previously admitted at [facility] 05/19/20-05/27/20 from senior living facility when he was found on the floor. He presented with multiple rib fractures, rhabdomyolysis, and altered mental status at that time. Patient had MBSS at [facility] during that hospitalization on 05/24/20 which revealed significant pharyngeal retention with pureed solids and thickened liquids and inability to clear residue which resulted in subsequent aspiration after the swallow. Patient was recently hospitalized here at [facility] 06/07/20 for hypoxia and aspiration pneumonia. Patient?s chest CT at that time showed, ?groundglass opacities bilaterally.? 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 At the time patient presented with congested cough, which required suctioning of secretions. Patient and family originally opted out of PEG tube placement, but changed their minds after hospitalization at [facility]. On 06/10/20 PEG tube was placed prior to discharge. Patient?s son had discussed comfort feeds with MD. Patient returns today for outpatient MBSS in hopes of eating three meals a day. MBSS was ordered to monitor for any significant change in swallow function due to patient?s desire to eat by mouth. Oral Motor Exam Facial Symmetry: Symmetrical Mouth Occlusion: Normal Oral-Facial Teeth Characteristics: Oral-Facial Lip Pucker Description: Reduced ROM Oral-Facial Smile (Lips) Description: Reduced ROM Oral-Facial Puff Cheeks Description: Reduced Strength Tongue Size: Normal Tongue Range of Movement Description: Reduced Tongue Speed of Movement Description: Reduced Tongue Strength of Movement (against opposing pressure): Reduced Tongue Movement Characteristics: Normal/Absent Food and Liquid Trials: Oral Impairment: Lip Closure: 2=Escape @ interlabial space/lat juncture; not beyond vermilion border Oral Impairment: Tongue Control During Bolus Hold: 3=Posterior escape of greater than half of bolus Oral Impairment: Bolus Preparation/Mastication: Did not test Oral Impairment: Bolus Transport/Lingual Motion: 3=Repetitive/disorganized tongue motion Oral Impairment: Oral Residue: 1=Trace residue lining oral structures Oral Impairment:Initiation of Pharyngeal Swallow: 3=Bolus head in pyriforms Pharyngeal Impairment: Soft Palate Elevation: 0=No bolus between soft palate (SP)/pharyngeal wall (PW) Pharyngeal Impairment: Laryngeal Elevation: 1=Partial thyroid cartilage/arytenoids to epiglottic petiole movement Pharyngeal Impairment: Anterior Hyoid Excursion: 1=Partial anterior movement Pharyngeal Impairment: Epiglottic Movement: 1=Partial inversion Pharyngeal Impairment: Laryngeal Vestibular Closure:: 2=None: No inversion Pharyngeal Impairment: Pharyngeal Stripping Wave: 2=Absent Pharyngeal Impairment: Pharyngeal Contraction: Did not test Pharyngeal Impairment: Pharyngoesophageal Segment Openin=Partial distention/partial duration: partial obstruction of flow Pharyngeal Impairment: Tongue Base (TB) Retraction: 2=Narrow column of contrast/air between TB and posterior PW Pharyngeal Impairment: Pharyngeal Residue: 3=Majority of contrast within or on pharyngeal structures Pharyngeal Impairment: Esophageal Clearance Upright Position: Did not test Impressions and Recommendations Clinical Observations: OBJECTIVE: Time-out: performed at 02:45 Evaluation Start: 02:30; Stop: 02:40 Patient Positioning: Seated 70-90 degrees Viewing Planes: LATERAL ONLY Contrast: MBSImP? Standardized Protocol using commercially prepared, standardized Barium viscosities, including: Varibar? THIN LIQUID (40% w/v, <15 cps) , Varibar? NECTAR (40% w/v, <150-450 cps) , Varibar? THIN HONEY (40% w/v, <800-1800 cps) MBSImP ID: [id number] MBSImP Results: Lip closure for intraoral bolus containment resulted in bolus escape from the interlabial space or lateral juncture, but no extension beyond the vermilion border. Tongue control during bolus hold allowed posterior escape of greater than half of the bolus. Bolus preparation and mastication received the highest impairment score; solid not given due to patient safety concerns related to oral impairment. Bolus transport/lingual motion was with repetitive/disorganized motion of the tongue. Oral residue was a trace, lining oral structures. Initiation of the pharyngeal swallow occurred when the bolus head was in the pyriform sinuses. Soft palate elevation resulted in no bolus between the soft palate and the pharyngeal wall. Laryngeal elevation was decreased, with partial superior movement of the thyroid cartilage/partial approximation of the arytenoids to the epiglottic petiole. Anterior hyoid excursion demonstrated partial anterior movement. Epiglottic movement resulted in partial inversion. Laryngeal vestibular closure was absent, resulting in a wide column of air/contrast within the laryngeal vestibule at the height of the swallow. Pharyngeal stripping wave was absent. Pharyngeal contraction could not be determined due to logistical reasons not related to physiologic impairment. Pharyngoesophageal segment opening demonstrated partial distension/partial duration, with partial obstruction of bolus flow. Tongue base retraction allowed a narrow column of contrast or air between the retracted tongue base and the posterior pharyngeal wall. Pharyngeal residue was the majority of contrast within or on pharyngeal structures. Esophageal clearance in the upright position could not be assessed due to logistical reasons not related to physiologic impairment. Oral Impairment Score: 14 Pharyngeal Impairment Score: 13 (absence of score, component 13) Esophageal Impairment Score: --- (absence of score, component 17) Laryngeal Penetration and Aspiration: Aspiration was observed in today's study. Honey-thick Contrast entered the airway, passed below the vocal folds, and was not ejected from the trachea despite effort. Thin Contrast entered the airway, passed below the vocal folds, and no effort was made to eject. ASSESSMENT: This exam was conducted by a speech-language pathologist and radiologist. Patient was seated for lateral position only. It is noted that patient exhibited difficulty remaining upright and was frequently reminded to sit up during this exam. Patient trialed the following liquid and solid consistencies: -teaspoon honey thick liquid barium -teaspoon nectar thick liquid barium -5 mL thin liquid barium -pureed solid (applesauce mixed with barium paste) Patient displays profound oropharyngeal dysphagia characterized by impairments in the following components of swallow physiology: ORAL PHASE: -posterior escape of greater than half bolus -repetitive and disorganized posterior tongue movement (tongue pumping) -mild oral residue -delayed pharyngeal swallow trigger when bolus head reached pyriforms PHARYNGEAL PHASE: -partial laryngeal elevation with partial anterior hyoid movement and partial epiglottic inversion -absent pharyngeal stripping wave -partial distention/partial duration; partial obstruction of flow through PES -reduced tongue base retraction -significant pharyngeal residue Penetration and aspiration with liquids. Evidence of deep penetration when drinking honey thick liquid. Contrast entered airway and passed below the vocal folds. Contrast coated trachea and patient was instructed to cough and clear his throat. This did not clear material from airway. Silent aspiration when drinking thin liquid. No effort made to eject contrast. Patient was cued to cough and clear his throat with no effect. Significant pharyngeal residue which puts patient at risk for aspiration after the swallow. Patient was cued for multiple swallows, which effectively reduced pharyngeal retention. Patient is at high risk of aspiration. The following compensatory strategies appear to have had a negative impact on swallowing function: Mccarthy-thick Liquid increased Pharyngeal Residue Honey-thick Liquid increased Penetration, Pharyngeal Residue Liquid Intake Recommendation: NPO Liquid Intake Strategies: Dietary Recommendations: NPO Medication Administration: NPO PLAN: Intake Recommendations: Route: NPO/Alternate Route Diet Grade: IDDSI Levels: Liquid Consistencies: IDDSI Levels: DENTAL LABORATORY TECHNOLOGY TEACHER continues to recommend NPO based on objective results of this exam. Recommend continue alternative means of nutrition if still deemed appropriate by G.I. and Nutrition. Patient is at high aspiration risk. Recommend rigorous oral care (at least 4 times daily) and elevate head of bed at least 30 degrees to reduce risk of microaspiration. This clinician discussed results and recommendations with patient?s son who was present at this exam. Continue to recommend NPO. However, ultimate decision for nutritional intake should be made by patient, patient?s caregiver(s), and medical team keeping in mind totality of patient. Patient?s son reported that patient and his son might choose to forgo PO/partial PO for comfort/pleasure feed and quality of life. Per MD note, this discussion was had with MD as well during previous discharge from [facility] [place]. Important for patient and family to make decision with full knowledge and understanding of the risk of aspiration and rationale for NPO recommendation. If patient and family chooses to forgo PO/partial PO for comfort/pleasure feed/quality of life, patient may consider conservatively pureed solids/ pudding thick liquids (single consistency) and/or Mars Free Water Protocol (ice chips) with strict aspiration precautions. Patient is at risk for aspiration with all consistencies. Suggested Referrals: The patient might benefit from a referral to: Gastroenterology Indication for Referral: for ongoing care and management Neurology Indication for Referral: management of PD Nutrition Services Indication for Referral: for ongoing care and management Recommended Treatments: Base of Tongue Exercises Pharyngeal Resistive Exer Compens. Strategy Educat. Vocal Cord Adduction Exer Recommendation for Speech Therapy: Speech Therapy through [facility] Speech Therapy through Rehab Facility Recommend dysphagia treatment with speech therapy to trial exercises. Prognosis is poor, however, given presence of underlying conditions Parkinson's and dementia. Timeline to reassess: 3 months [facility] Goals: ? The patient will demonstrate improved swallowing function via repeat clinical evaluation, videoendoscopy/videofluoroscopy and/or patient self-rating scores. ? The patient and/or family will participate in further education for swallowing goals. Short Term Goals: ? Independent Home Exercise - The patient will perform 10 repetitions of the Effortful Swallow, Aydee Maneuver, Shaker Head Lifts, Lizzy Maneuver 3 times a day with 90% accuracy and maximum cuing as part of a home exercise program. ? Structured Therapy - The patient will demonstrate 90% accuracy and require maximum cuing in structured swallowing therapy with the DENTAL LABORATORY TECHNOLOGY TEACHER using the following exercises/therapy approaches and therapy assisted devices: Effortful Swallow, Aydee Maneuver, Shaker Head Lifts, Lizzy Maneuver, . ? Education - The patient, family, caregiver will verbalize/demonstrate understanding of the results of this evaluation, the above recommendations, and the swallowing guidelines. Clinician - Supplemental, Miscellaneous Communication: It is important to note MBSS objective studies are snapshots in time and Patient function might vary with factors such as time of day or concomitant medical conditions. For this reason, the final treatment plan for this patient should rest with their medical care team. Additional recommendations should be considered with the totality of the Patient in mind. Thank for the opportunity to participate in the care of this patient. If you have any questions about the content of this report, please contact the [facility] at [facility]. Education: Education regarding findings from today's study and plans for therapy were provided to Patient and family/caregiver through Verbal Instruction. Understanding was expressed by the Patient and family/caregiver. Wrapper Opener Clinician/Clinical Fellow: No Supervisory Statement: N/A Speech Language Pathologist: Romy Lomax M.A., CCC-DENTAL LABORATORY TECHNOLOGY TEACHER
== END 2020-07-21 14:19 | disposition home or self-care (01) ==
LOC: HO.XRAY 14:18
PROVIDERS: PCP Emergency Medicine; Visit Provider Physician Assistant
DX: R13.10 Dysphagia, unspecified (principal)
CPT/HCPCS: 74230; 92611